=== PATIENT | male | born 1945 | race Caucasian/White ===

== ENCOUNTER → 2020-05-09 09:38 | Outpatient (BNVA) | payer MEDICARE, SELFPAY | PROVIDERS: Family Provider Family Medicine; PCP Family Medicine; Visit Provider Urology | DX: N40.1 Benign prostatic hyperplasia with lower urinary tract symptoms (principal); R97.20 Elevated prostate specific antigen [PSA] | CPT/HCPCS: 81001; 84153 ==

== ENCOUNTER 2021-09-08 15:19 | Emergency (ER) | payer MEDICARE, SELFPAY ==
[2021-09-08 15:35] VITALS: BP 122/65; PULSE 71; RESP 18; TEMP 36.8; O2SAT 97; BMI 23.9
--- NOTE | 2021-09-08 15:51 | ECG_ITS ---
[facility] Test Date: 2021-09-08 Pat Name: Josué Wright Department: Room: Gender: Male Business Line Manager: : 1945 Requested By: Melanie Gandara Order Number: [id number] Cortez MD: Flor Elizabeth M.D. Measurements Intervals [place] Rate: 67 P: 60 [place]: 152 QRS: 51 QRSD: 161 T: 62 QT: 483 QTc: 514 Interpretive Statements SINUS RHYTHM LEFT BUNDLE BRANCH BLOCK [120+ ms QRS DURATION, 80+ ms Q/S IN V1/V2, 85+ ms R IN I/aVL/V5/V6] Compared to ECG 05/27/2018 12:44:08 No significant changes Electronically Signed On 09-08-2021 16:59:35 DIGITAL ACCOUNT COORDINATOR by Flor Elizabeth M.D. [id number]
[2021-09-08 16:00] VITALS: BP 130/58; PULSE 69; RESP 16; O2SAT 96
--- NOTE | 2021-09-08 16:07 | ED_ITS ---
Documented by User: Melanie Gandara PA-C 09/08/21 16:47 HPI - Weakness General: Chief complaint: Weakness Stated complaint: low bp Time Seen by Provider: 09/08/21 16:01 Source: patient Mode of arrival: ambulatory Limitations: no limitations History of Present Illness: 76-year-old male presents to the ER today for low blood pressure. Patient reports he checks his blood pressure daily at home and has noticed over the last 2 to 3 days his blood pressure has been trending emiliano nward. Patient's blood pressure at home was 80/30 at his last reading. Patient reports he has not changed cuffs or done anything differently. Patient has a history of hypertension and cardiomyopathy. Patient is supposed to be having an echo but that has not been scheduled this time. Patient does see Dr. Rodriguez for his cardiac issues. Patient reports increased weakness however he attributes it to the weather and wearing boots in the snow to work. Patient denies any increase shortness of breath. Denies any chest pain. Patient reports a mild cough but nothing worse over the last 2 to 3 days. Patient denies any fever or chills. Patient denies any recent illness. Associated symptoms: Denies chest pain, dysuria, nausea or vomiting Review of Systems General: Reports: 10 or more systems reviewed and unremarkable except in HPI and below Card: Denies: chest pain, palpitations, lightheadedness, dyspnea on exertion or orthopnea Resp: Denies: dyspnea or productive cough GI: Denies: abdominal pain, nausea, vomiting, diarrhea or constipation : Denies: difficulty urinating or dysuria PFS ED PFSH: Medical History BPH loc w urin obs/LUTS Cardiomyopathy DVT of leg (deep venous thrombosis) Elevated PSA Gross hematuria Hematospermia HTN (hypertension) Hydrocele, bilateral Surgical History Hx of arthroscopy of left knee Hx of hand surgery Family History Mother , AT AGE 62 STOMACH CANCER Cancer Father Diabetes Sister Cancer Social History Smoking and tobacco status: former smoker Alcohol intake: unknown Adopted: No Caregiver/support person: No Household members: spouse Marital status: Current occupational status: retired Physical Exam Const: COMMON NORMALS: no acute distress, average body habitus, patient oriented x3, no limitations and alert HENMT: COMMON NORMALS: normocephalic HEAD & SCALP: normocephalic Neck/C-Spine: COMMON NORMALS: full ROM and no lymphadenopathy Resp: COMMON NORMALS: normal respiratory effort, No retractions, No use of accessory muscles and clear to auscultation bilaterally AUSCULTATION: clear to auscultation bilaterally Cardio: COMMON NORMALS: regular rate and regular rhythm RATE: regular rate RHYTHM: regular rhythm HEART SOUNDS: no murmurs GI: COMMON NORMALS: Normal to inspection, nondistended, normoactive bowel sounds present, Soft to palpation and non-tender PALPATION: Yes Soft to palpation : COMMON NORMALS: Yes no CVA tenderness BLADDER/KIDNEY EXAM: Yes no CVA tenderness Back/Pelvis: COMMON NORMALS: no CVA tenderness Extremity: COMMON NORMALS: normal to inspection and full ROM Neuro: COMMON NORMALS: patient oriented x3 SENSORIUM/ORIENTATION: Yes alert Psych: COMMON NORMALS: mental status grossly normal, Normal thought process present and cooperative THOUGHT PROCESS: Normal thought process present Skin: COMMON NORMALS: no rashes or lesions noted GENERAL SKIN EXAM: no rashes or lesions noted Course ED course: Patient's blood pressure is normal in the ER today however I did look at his readings at home and they have been trending downward over the last 2 days. We will do an EKG and lab work here to rule out any causes of that. Reevaluation(s): Reevaluation #1: Waiting on test results and EKG at time of shift change. Report given to Jose Tyson. Vital Signs: Vital signs: Vital Signs Temperature 98.3 F 09/08/21 15:35 Pulse Rate 63 09/08/21 18:07 Respiratory Rate 14 09/08/21 18:07 Blood Pressure 137/69 09/08/21 18:07 Pulse Oximetry 97 09/08/21 18:07 MDM - Weakness Lab Data : 09/08/21 16:45 09/08/21 16:45 Radiology Impressions Chest X-Ray 09/08/21 17:31 IMPRESSION: No acute findings. Laboratory Results WBC 2.8 10^3/uL (4.0-10.0) L 09/08/21 16:45 RBC 3.90 10^6/uL (4.1-5.3) L 09/08/21 16:45 Hgb 11.9 g/dL (11.7-16.6) 09/08/21 16:45 Hct 35.8 % (42.0-52.0) L 09/08/21 16:45 MCV 91.8 fl (80-94) 09/08/21 16:45 MCH 30.5 pg (28.0-34.0) 09/08/21 16:45 MCHC 33.2 g/dL (30.0-36.0) 09/08/21 16:45 RDW 12.7 % (12.1-15.1) 09/08/21 16:45 Plt Count 133 10^3/cmm (130-400) 09/08/21 16:45 MPV 10.6 fL (7.4-10.4) H 09/08/21 16:45 Neut % (Auto) 60.3 % 09/08/21 16:45 Lymph % (Auto) 26.9 % 09/08/21 16:45 [place] % (Auto) 11.6 % 09/08/21 16:45 Eos % (Auto) 0.4 % 09/08/21 16:45 Baso % (Auto) 0.4 % 09/08/21 16:45 Neut # (Auto) 1.66 10^3/uL (1.8-7.7) L 09/08/21 16:45 Lymph # (Auto) 0.7 10^3/uL (0.8-4.8) L 09/08/21 16:45 [place] # (Auto) 0.3 10^3/uL (0.2-0.9) 09/08/21 16:45 Eos # (Auto) 0.0 10^3/uL (0.0-0.8) 09/08/21 16:45 Baso # (Auto) 0.0 10^3/uL (0.0-0.1) 09/08/21 16:45 Nucleated RBC % (auto) 0 % 09/08/21 16:45 Nucleated RBCs # 0.0 /100WBC 09/08/21 16:45 Sodium 138 mmol/L (136-145) 09/08/21 16:45 Potassium 4.5 mmol/L (3.5-5.1) 09/08/21 16:45 Chloride 102 mmol/L (98-107) 09/08/21 16:45 Carbon Dioxide 27 mmol/L (22-29) 09/08/21 16:45 Anion Gap 13.5 (5-19) 09/08/21 16:45 BUN 20 mg/dL (8-23) 09/08/21 16:45 Creatinine 0.9 mg/dL (0.7-1.2) 09/08/21 16:45 GFR Calculation Not Reportable 09/08/21 16:45 Glucose 101 mg/dL (65-115) 09/08/21 16:45 Calculated Osmolality 289 mOsm/kg (285-295) 09/08/21 16:45 Calcium 7.6 mg/dL (8.5-10.5) L 09/08/21 16:45 Total Bilirubin 0.4 mg/dL (0.15-1.2) 09/08/21 16:45 AST 37 U/L (0-40) 09/08/21 16:45 ALT 18 U/L (0-41) 09/08/21 16:45 Alkaline Phosphatase 63 IU/L (40-130) 09/08/21 16:45 Total Protein 5.6 g/dL (6.6-8.7) L 09/08/21 16:45 Albumin 3.7 g/dL (3.5-5.2) 09/08/21 16:45 Globulin 1.9 g/dL (1.3-4.6) 09/08/21 16:45 Urine Color Yellow (Yellow) 09/08/21 14:45 Urine Appearance Clear (CLEAR) 09/08/21 14:45 Urine pH 6 (5-7) 09/08/21 14:45 Ur Specific Marcell[place] 1.010 (1.005-1.030) 09/08/21 14:45 Urine Protein Neg (Negative) 09/08/21 14:45 Urine Glucose (UA) Norm (Normal) 09/08/21 14:45 Urine Ketones Negative (Negative) 09/08/21 14:45 Urine Blood 2+ (Negative) H 09/08/21 14:45 Urine Nitrate Negative (Negative) 09/08/21 14:45 Urine Bilirubin Neg (Negative) 09/08/21 14:45 Urine Urobilinogen Norm mg/dL (Negative) 09/08/21 14:45 Ur Leukocyte Esterase Negative (Negative) 09/08/21 14:45 Urine RBC 0-4 /hpf (0-2) H 09/08/21 14:45 Urine WBC None /hpf (0-5) 09/08/21 14:45 Ur Squamous Epith Cells None /hpf (0-5) 09/08/21 14:45 Amorphous Sediment Not Reportable 09/08/21 14:45 Urine Bacteria Trace /hpf (NONE) 09/08/21 14:45 SARS-CoV-2 Ag (Rapid) Positive (Negative) H 09/08/21 17:45 Discharge Plan Discharge Patient Disposition: Home Clinical Impression: COVID-19 Condition: Stable Prescriptions: No Action finasteride 5 mg tablet 5 mg PO DAILY 0RF tamsulosin 0.4 mg capsule 0.4 mg PO DAILY 0RF aspirin [Adult Low Dose Aspirin] 81 mg tablet,delayed release (DR/EC) 81 mg PO DAILY 0RF levothyroxine [Synthroid] 25 mcg tablet 25 mcg PO DAILY 0RF vitamin B complex [B Complex-Vitamin B12] Tablet 1 tab PO DAILY 0RF amlodipine 2.5 mg tablet 2.5 mg PO DAILY 0RF multivitamin Tablet 1 tab PO DAILY 0RF carvedilol 25 mg tablet 25 mg PO BID Qty: 14 0RF Rx Instructions: must administer with a meal/food Discharge Orders: Discharge ED (Routine); Ordered 09/08/21 Ordered By: Jose Tyson Referrals: Alex Casiano MD [Primary Care Provider] - Discharge Diet: Usual diet Discharge Activity: Increase activity as tolerated Patient Instructions: Viral Syndrome (ED), Opioid Safety Activity Restrictions/Additional Instructions: Home and rest. Drink plenty of water and fluids. Use acetaminophen or ibuprofen for pain and fever. Follow-up with primary care as needed for further instructions. Return to ER for new concerns or worsening symptoms like severe chest pain, increasing shortness of breath, or new concerns. Sign Out Sign Out Data: Patient Sign Out occurred on 09/08/21 at 16:53. Patient's care was discussed, and care was transferred from to Jose Tyson. Coding Level of Care Code ED Supermarket Manager for Chg Fwd Exam Comprehensive Documented by User: MACHELLE Levine 09/08/21 18:39 HPI - Weakness General: Chief complaint: Weakness Stated complaint: low bp Time Seen by Provider: 09/08/21 16:01 PFSH ED PFSH: Medical History BPH loc w urin obs/LUTS Cardiomyopathy DVT of leg (deep venous thrombosis) Elevated PSA Gross hematuria Hematospermia HTN (hypertension) Hydrocele, bilateral Surgical History Hx of arthroscopy of left knee Hx of hand surgery Family History Mother , AT AGE 62 STOMACH CANCER Cancer Father Diabetes Sister Cancer Social History Smoking and tobacco status: former smoker Alcohol intake: unknown Adopted: No Caregiver/support person: No Household members: spouse Marital status: Current occupational status: retired Course Vital Signs: Vital signs: Vital Signs Temperature 98.3 F 09/08/21 15:35 Pulse Rate 63 09/08/21 18:07 Respiratory Rate 14 09/08/21 18:07 Blood Pressure 137/69 09/08/21 18:07 Pulse Oximetry 97 09/08/21 18:07 MDM - Weakness Medical Decision Making 76-year-old male patient comes in today for complaints of increased weakness over the last 3 days. Patient also notes that his blood pressure was running a little bit lower. 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 Patient appears mildly unwell but not toxic. Lungs are decreased air movement in the bases. No edema is noted in the extremities. Patient moves all extremities well. Differential diagnosis includes but not limited to viral syndrome, anemia, pneumonia. Chest x-ray was normal. CBC noted a white count of 2.8, CMP was unremarkable, EKG showed a sinus rhythm with a left bundle branch block. Suspicion for COVID-19 was raised due to the leukopenia and a COVID-19 antigen test was performed testing positive for the patient. Recommended patient drink plenty of fluids and continue with routine medications as directed. Recommend patient talk with his primary care about other options for treatment at this time. Patient reported understanding of care plan and need for follow-up or return to the ER for increasing shortness of breath or severe chest pain. Patient reported understanding. Lab Data : 09/08/21 16:45 09/08/21 16:45 Radiology Impressions Chest X-Ray 09/08/21 17:31 IMPRESSION: No acute findings. Laboratory Results WBC 2.8 10^3/uL (4.0-10.0) L 09/08/21 16:45 RBC 3.90 10^6/uL (4.1-5.3) L 09/08/21 16:45 Hgb 11.9 g/dL (11.7-16.6) 09/08/21 16:45 Hct 35.8 % (42.0-52.0) L 09/08/21 16:45 MCV 91.8 fl (80-94) 09/08/21 16:45 MCH 30.5 pg (28.0-34.0) 09/08/21 16:45 MCHC 33.2 g/dL (30.0-36.0) 09/08/21 16:45 RDW 12.7 % (12.1-15.1) 09/08/21 16:45 Plt Count 133 10^3/cmm (130-400) 09/08/21 16:45 MPV 10.6 fL (7.4-10.4) H 09/08/21 16:45 Neut % (Auto) 60.3 % 09/08/21 16:45 Lymph % (Auto) 26.9 % 09/08/21 16:45 [place] % (Auto) 11.6 % 09/08/21 16:45 Eos % (Auto) 0.4 % 09/08/21 16:45 Baso % (Auto) 0.4 % 09/08/21 16:45 Neut # (Auto) 1.66 10^3/uL (1.8-7.7) L 09/08/21 16:45 Lymph # (Auto) 0.7 10^3/uL (0.8-4.8) L 09/08/21 16:45 [place] # (Auto) 0.3 10^3/uL (0.2-0.9) 09/08/21 16:45 Eos # (Auto) 0.0 10^3/uL (0.0-0.8) 09/08/21 16:45 Baso # (Auto) 0.0 10^3/uL (0.0-0.1) 09/08/21 16:45 Nucleated RBC % (auto) 0 % 09/08/21 16:45 Nucleated RBCs # 0.0 /100WBC 09/08/21 16:45 Sodium 138 mmol/L (136-145) 09/08/21 16:45 Potassium 4.5 mmol/L (3.5-5.1) 09/08/21 16:45 Chloride 102 mmol/L (98-107) 09/08/21 16:45 Carbon Dioxide 27 mmol/L (22-29) 09/08/21 16:45 Anion Gap 13.5 (5-19) 09/08/21 16:45 BUN 20 mg/dL (8-23) 09/08/21 16:45 Creatinine 0.9 mg/dL (0.7-1.2) 09/08/21 16:45 GFR Calculation Not Reportable 09/08/21 16:45 Glucose 101 mg/dL (65-115) 09/08/21 16:45 Calculated Osmolality 289 mOsm/kg (285-295) 09/08/21 16:45 Calcium 7.6 mg/dL (8.5-10.5) L 09/08/21 16:45 Total Bilirubin 0.4 mg/dL (0.15-1.2) 09/08/21 16:45 AST 37 U/L (0-40) 09/08/21 16:45 ALT 18 U/L (0-41) 09/08/21 16:45 Alkaline Phosphatase 63 IU/L (40-130) 09/08/21 16:45 Total Protein 5.6 g/dL (6.6-8.7) L 09/08/21 16:45 Albumin 3.7 g/dL (3.5-5.2) 09/08/21 16:45 Globulin 1.9 g/dL (1.3-4.6) 09/08/21 16:45 Urine Color Yellow (Yellow) 09/08/21 14:45 Urine Appearance Clear (CLEAR) 09/08/21 14:45 Urine pH 6 (5-7) 09/08/21 14:45 Ur Specific [place] 1.010 (1.005-1.030) 09/08/21 14:45 Urine Protein Neg (Negative) 09/08/21 14:45 Urine Glucose (UA) Norm (Normal) 09/08/21 14:45 Urine Ketones Negative (Negative) 09/08/21 14:45 Urine Blood 2+ (Negative) H 09/08/21 14:45 Urine Nitrate Negative (Negative) 09/08/21 14:45 Urine Bilirubin Neg (Negative) 09/08/21 14:45 Urine Urobilinogen Norm mg/dL (Negative) 09/08/21 14:45 Ur Leukocyte Esterase Negative (Negative) 09/08/21 14:45 Urine RBC 0-4 /hpf (0-2) H 09/08/21 14:45 Urine WBC None /hpf (0-5) 09/08/21 14:45 Ur Squamous Epith Cells None /hpf (0-5) 09/08/21 14:45 Amorphous Sediment Not Reportable 09/08/21 14:45 Urine Bacteria Trace /hpf (NONE) 09/08/21 14:45 SARS-CoV-2 Ag (Rapid) Positive (Negative) H 09/08/21 17:45 EKG Data EKG 1: Interpretation: 1700, EKG shows a sinus rhythm with a left bundle branch block. Irregular rate at 67 bpm with no ectopy. Normal NH intervals are noted, patient has a widened QRS pattern. Discharge Plan Discharge Patient Disposition: Home Clinical Impression: COVID-19 Condition: Stable Prescriptions: No Action finasteride 5 mg tablet 5 mg PO DAILY 0RF tamsulosin 0.4 mg capsule 0.4 mg PO DAILY 0RF aspirin [Adult Low Dose Aspirin] 81 mg tablet,delayed release (DR/EC) 81 mg PO DAILY 0RF levothyroxine [Synthroid] 25 mcg tablet 25 mcg PO DAILY 0RF vitamin B complex [B Complex-Vitamin B12] Tablet 1 tab PO DAILY 0RF amlodipine 2.5 mg tablet 2.5 mg PO DAILY 0RF multivitamin Tablet 1 tab PO DAILY 0RF carvedilol 25 mg tablet 25 mg PO BID Qty: 14 0RF Rx Instructions: must administer with a meal/food Discharge Orders: Discharge ED (Routine); Ordered 09/08/21 Ordered By: Jose Tyson Referrals: Alex Casiano MD [Primary Care Provider] - Discharge Diet: Usual diet Discharge Activity: Increase activity as tolerated Patient Instructions: Viral Syndrome (ED), Opioid Safety Activity Restrictions/Additional Instructions: Home and rest. Drink plenty of water and fluids. Use acetaminophen or ibuprofen for pain and fever. Follow-up with primary care as needed for further instructions. Return to ER for new concerns or worsening symptoms like severe chest pain, increasing shortness of breath, or new concerns. Sign Out Sign Out Data: Patient Sign Out occurred on 09/08/21 at 16:53. Patient's care was discussed, and care was transferred from to Jose Tyson. Coding Level of Care Code ED Supermarket Manager for Colby Fwd Exam Comprehensive
[2021-09-08 17:22] LABS: Basophils % 0.4 %; Eosinophils % 0.4 %; Hematocrit 35.8 % (42.0-52.0); Hemoglobin 11.9 g/dL (11.7-16.6); Lymphocytes # 0.7 10^3/uL (0.8-4.8); Lymphocytes % 26.9 %; Mean Corpuscular HGB Conc 33.2 g/dL (30.0-36.0); Mean Corpuscular Hemoglobin 30.5 pg (28.0-34.0); Mean Corpuscular Volume 91.8 fl (80-94); Mean Platelet Volume 10.6 fL (7.4-10.4); Monocytes # 0.3 10^3/uL (0.2-0.9); Monocytes % 11.6 %; Neutrophils # 1.66 10^3/uL (1.8-7.7); Neutrophils % 60.3 %; Nucleated Red Blood Cells % 0 %; Platelet Count 133 10^3/cmm (130-400); Red Cell Distribution Width 12.7 % (12.1-15.1); White Blood Count 2.8 10^3/uL (4.0-10.0)
[2021-09-08 17:25] LABS: Add Urine Microscopic? YES; Bilirubin Urine Neg (Negative); Blood Urine 2+ (Negative); Glucose Urine UA Norm (Normal); Ketones Urine Negative (Negative); Leukocyte Esterase Urine Negative (Negative); Nitrate Urine Negative (Negative); Protein Urine Neg (Negative); RBC Urine 0-4 /hpf (0-2); Urine Appearance Clear (CLEAR); Urine Color Yellow (Yellow); Urobilinogen Urine Norm (Negative); pH Urine 6 (5-7)
[2021-09-08 17:26] LABS: Add Urine Culture? No; Bacteria Urine TRACE /hpf
--- NOTE | 2021-09-08 17:31 | XRR_ITS ---
PROCEDURE INFORMATION: Exam: XR Chest Exam date and time: 09/08/2021 5:31 PM Age: 76 years old Clinical indication: Dyspnea; Additional info: Weakness, dyspnea TECHNIQUE: Imaging protocol: XR of the chest. Views: 1 view. COMPARISON: CR Chest 1 [place] [id number] 05/27/2018 12:53 PM FINDINGS: Lungs: Unremarkable. No consolidation. Pleural spaces: Unremarkable. No pleural effusion. No pneumothorax. Heart/Mediastinum: Unremarkable. No cardiomegaly. Bones/joints: Unremarkable. XR/XR chest 1V portable [id number] IMPRESSION: No acute findings.
[2021-09-08 17:38] LABS: Alanine Aminotransferase 18 U/L (0-41); Albumin Level 3.7 g/dL (3.5-5.2); Alkaline Phosphatase 63 IU/L (40-130); Aspartate Amino Transferase 37 U/L (0-40); Blood Urea Nitrogen 20 mg/dL (8-23); Calcium 7.6 mg/dL (8.5-10.5); Carbon Dioxide 27 mmol/L (22-29); Chloride 102 mmol/L (98-107); Globulin 1.9 g/dL (1.3-4.6); Glucose 101 mg/dL (65-115); Osmolality Calculated 289 mOsm/kg (285-295); Sodium 138 mmol/L (136-145); Total Bilirubin 0.4 mg/dL (0.15-1.2); Total Protein 5.6 g/dL (6.6-8.7)
[2021-09-08 17:40] LABS: Anion Gap 13.5 (5-19); Potassium 4.5 mmol/L (3.5-5.1)
[2021-09-08 18:07] VITALS: BP 137/69; PULSE 63; RESP 14; O2SAT 97
[2021-09-08 18:29] LABS: SARS Covid-2 Antigen Positive (Negative)
== END 2021-09-08 18:53 | disposition home or self-care (01) ==
PROVIDERS: Physician Assistant; Emergency Provider Nurse Practitioner Family; PCP Family Medicine
DX: U07.1 COVID-19 (principal); Z79.82 Long term (current) use of aspirin; I10 Essential (primary) hypertension; Z87.891 Personal history of nicotine dependence
CPT/HCPCS: 71045; 80053; 81001; 85025; 87426; 93005; 99283

== ENCOUNTER 2021-10-21 13:38 | Outpatient (CLI) | payer MEDICARE, SELFPAY ==
--- NOTE | 2021-10-21 13:44 | USCV_ITS ---
Josué Wright Age: 76 Gender: M : 1945 Exam Date: 10/21/2021 13:54 Ordering Phys: Jostin Oliver MD ([email or web address]) Technologist: PIETRO Exam Location: [facility] Indication: DILATED CARDIOMYOPATHY BP: 132 / 60 HR: 68 Rhythm: Sinus Technical Quality: Adequate MEASUREMENTS (Male / Female) Normal Values 2D ECHO LV Diastolic Diameter PLAX 4.3 cm 4.2 - 5.9 / 3.9 - 5.3 cm LV Systolic Diameter PLAX 2.9 cm IVS Diastolic Thickness 1.1 cm 0.6 - 1.0 / 0.6 - 0.9 cm IVS Systolic Thickness 1.8 cm LVPW Diastolic Thickness 1.1 cm 0.6 - 1.0 / 0.6 - 0.9 cm LVPW Systolic Thickness 1.1 cm LVOT Diameter 2.0 cm LV Ejection Fraction 2D Teich 56.9 % LV Ejection Fraction MOD 2C 46.3 % LV Ejection Fraction 2C AL 45.1 % LA Diameter 3.0 cm LA Width 3.4 cm LA Height 3.8 cm RA Width 3.5 cm RA Height 4.1 cm Aorta at Sinotubular Diameter 2.3 cm M-MODE Aortic Annulus Diameter 3.1 cm LA Ao Ratio MM 1.1 MV E Point Septal Separation 1.0 cm DOPPLER AV Peak Velocity 128.0 cm/s LVOT Peak Velocity 99.0 cm/s AV Area Cont Eq vti 2.4 cm squared AV Area Cont Eq pk 2.4 cm squared MV Area PHT 3.7 cm squared Mitral E to A Ratio 0.6 MV E' Velocity 33.5 cm/s Mitral E to MV E' Ratio 10.1 Mitral E to LV E' Lateral Ratio 8.8 Mitral E to LV E' Septal Ratio 12.1 TR Peak Velocity 248.1 cm/s TR Peak Gradient 24.6 mmHg TR Mean Velocity 183.3 cm/s TR Mean Gradient 14.3 mmHg TR Velocity Time Integral 73.8 cm TV Peak E Velocity 39.0 cm/s Right Atrial Pressure 3.0 mmHg Pulmonary Artery Systolic Pressu 27.6 mmHg PV Peak Velocity 92.0 cm/s RV Acceleration Time 0.1 s RV Ejection Time 0.3 s RV AcT/ET 0.4 FINDINGS Left Ventricle Normal left ventricular cavity size. Normal left ventricular wall thickness. Normal left ventricular systolic function. Left ventricular ejection fraction is estimated at 50-55 % visually and 52% by modified biplane method. There is possible septal wall hypokinesis. Abnormal septal motion consistent with conduction abnormality. Grade I diastolic dysfunction (abnormal relaxation filling pattern), normal to mildly elevated filling pressures. Right Ventricle Normal right ventricular size and systolic function. Right ventricular systolic pressure 26 mmHg. Right Atrium Normal right atrial size. Right atrial pressure estimated at 3 mm Hg. Left Atrium Mildly increased left atrial size. Mitral Valve Structurally normal mitral valve. No mitral valve stenosis. Mild mitral valve regurgitation. Aortic Valve Structurally normal trileaflet aortic valve. No aortic valve stenosis. No aortic valve regurgitation. Tricuspid Valve Structurally normal tricuspid valve. No tricuspid valve stenosis. Mild tricuspid valve regurgitation. Pulmonic Valve Pulmonic valve not well visualized. Mild pulmonary valve regurgitation. Pericardium No pericardial effusion. Aorta Normal-sized aortic root. Normal-sized inferior vena cava. CONCLUSIONS 1. Normal left ventricular cavity size, wall thickness and systolic function. Left ventricular ejection fraction is estimated at 50-55 % visually and 52% by modified biplane method. There is possible septal wall hypokinesis. Abnormal septal motion consistent with conduction abnormality. Grade I diastolic dysfunction (abnormal relaxation filling pattern), normal to mildly elevated filling pressures. 2. Normal right ventricular size and systolic function. 3. Pulmonary pressure estimated at 26 mmHg. 4. Mild mitral and tricuspid valve regurgitation. 5. When compared to previous echocardiogram 10/23/2017, left ventricular systolic function seems to have decreased. Flor Elizabeth MD (Electronically Signed) Final Date: 24 October 2021 18:30 S
== END 2021-10-21 13:39 | disposition home or self-care (01) ==
LOC: RAD 13:40
PROVIDERS: PCP Family Medicine; Visit Provider Internal Medicine Cardiovascular Disease
DX: I42.0 Dilated cardiomyopathy (principal); R06.02 Shortness of breath; I08.1 Rheumatic disorders of both mitral and tricuspid valves
CPT/HCPCS: 93306

== ENCOUNTER → 2022-02-11 09:34 | Outpatient (BNVA) | payer MEDICARE, SELFPAY | PROVIDERS: PCP Family Medicine; Visit Provider Family Medicine | DX: E03.9 Hypothyroidism, unspecified (principal); I27.20 Pulmonary hypertension, unspecified | CPT/HCPCS: 80053; 84443; 85025 ==

== ENCOUNTER → 2022-06-09 13:45 | Outpatient (BNVA) | payer MEDICARE, SELFPAY | PROVIDERS: PCP Family Medicine; Visit Provider Internal Medicine Cardiovascular Disease | DX: I42.0 Dilated cardiomyopathy (principal); I10 Essential (primary) hypertension; Z87.891 Personal history of nicotine dependence | CPT/HCPCS: 99214 ==

== ENCOUNTER → 2022-10-20 14:54 | Outpatient (BNVA) | payer MEDICARE, SELFPAY | PROVIDERS: PCP Family Medicine; Visit Provider Family Medicine | DX: R53.83 Other fatigue (principal); M19.90 Unspecified osteoarthritis, unspecified site; R35.0 Frequency of micturition; U07.1 COVID-19; N40.1 Benign prostatic hyperplasia with lower urinary tract symptoms; R97.20 Elevated prostate specific antigen [PSA] | CPT/HCPCS: 80053; 81000; 81003; 83880; 84153; 84443; 85025; 86140; 87086 ==

== ENCOUNTER 2022-11-04 10:51 | Outpatient (CLI) | payer MEDICARE, SELFPAY ==
--- NOTE | 2022-11-04 11:17 | XRR_ITS ---
PROCEDURE INFORMATION: Exam: XR Right Shoulder Exam date and time: 11/04/2022 11:36 AM Age: 77 years old Clinical indication: Pain; Shoulder; Bilateral; Additional info: Shoulder pain TECHNIQUE: Imaging protocol: Radiologic exam of the right shoulder. Views: 2 or more views. Total images: 1 COMPARISON: CR XR chest 1V portable [id number] 09/08/2021 5:55 PM FINDINGS: Bones/joints: Normal. Soft tissues: Normal. XR/XR shoulder RT min 2V* [id number] IMPRESSION: No acute findings.
--- NOTE | 2022-11-04 11:17 | XRR_ITS ---
PROCEDURE INFORMATION: Exam: XR Left Shoulder Exam date and time: 11/04/2022 11:36 AM Age: 77 years old Clinical indication: Pain; Shoulder; Bilateral; Additional info: Shoulder pain TECHNIQUE: Imaging protocol: Radiologic exam of the left shoulder. Views: 2 or more views. Total images: 2 COMPARISON: CR XR chest 1V portable [id number] 09/08/2021 5:55 PM FINDINGS: Bones/joints: Normal. Soft tissues: Normal. XR/XR shoulder LT min 2V* [id number] IMPRESSION: No acute findings.
== END 2022-11-04 10:52 | disposition home or self-care (01) ==
PROVIDERS: PCP Family Medicine; Visit Provider Family Medicine
DX: M25.512 Pain in left shoulder (principal); M25.511 Pain in right shoulder
CPT/HCPCS: 73030

== ENCOUNTER → 2022-11-11 14:20 | Outpatient (BNVA) | payer MEDICARE, SELFPAY | PROVIDERS: PCP Family Medicine; Visit Provider Family Medicine | DX: R79.82 Elevated C-reactive protein (CRP) (principal) | CPT/HCPCS: 85025; 85651; 86140 ==

== ENCOUNTER 2022-11-18 06:42 | Outpatient (CLI) | payer MEDICARE, SELFPAY ==
--- NOTE | 2022-11-18 07:00 | CT_ITS ---
WS: [id number] CT chest wo con [id number] HISTORY: dyspnea/ cough/ elevated CRP TECHNIQUE: Axial imaging performed through the thorax. Coronal and sagittal reformats are submitted. All CT scans at [facility] use at least one of these dose optimization techniques: automated exposure control; mA and/or kV adjustment per patient size (includes targeted exams where dose is mat ched to clinical indication); or iterative reconstruction. CONTRAST: None DLP: 253.19 mGy.cm COMPARISON: Chest radiograph 09/08/2021. Lungs and central airway: Marked pulmonary hyperinflation with advanced emphysema. Numerous, multi lo bar opacifications are identified. There is a solid mass which is spiculated at the LEFT lung base in the anterior LEFT lower lobe. This mass measures 3.1 x 2.4 cm and contains a lucent center. There is additional scattered tree-in-bud airspace disease and nodules. 1.2 cm nodule along the LEFT inferior major fissure. Additional nodules and tree-in-bud airspace disease with reticular thickening is note d bilaterally. Pleura: Normal. No pleural effusion. Heart and pericardium: Mild cardiomegaly with no pericardial effusion. Mediastinum and ju: Hilar regions are difficult to evaluate well without IV contrast. There does ap pear to be some fullness at the hilar regions but this may be vascular. No RIGHT paratracheal enlarge d lymph nodes. Vessels: Mild atherosclerosis aorta. No aneurysm. Normal size pulmonary artery. Chest wall and lower neck: No soft tissue masses. Upper abdomen: Small hiatal hernia. There are several low-attenuation masses within the liver. The la rgest is slightly lobulated in the LEFT lobe measuring 2.9 x 2.4 cm. Cysts were identified within the liver on a prior ultrasound of 10/12/2014. Some of these low-attenuation lesions are too small to ej racterize. No adrenal mass. Osseous structures: Osteopenia. Moderate increase in thoracic kyphosis. CT/CT chest wo con [id number] IMPRESSION: 1. Multilobar abnormalities are noted throughout the lungs. 2. Most concerning abnormality is a spiculated mass with a lucent centered in the anterior LEFT lower lobe measuring 3.1 x 2.4 cm. Differential includes neop lasm but also infectious or inflammatory etiology. 3. Numerous additional tree-in-bud airspace disease which is typically noted w ith endobronchial pneumonia or aspiration pneumonia. 4. There are additional scattered pulmonary nodules which are less than a cent imeter. These all may be postinflammatory or chronic. 5. Recommend treatment for possible pneumonia with short-term follow-up in 4-[address] would be the most helpful to reevaluate. 6. No definite adenopathy is identified. 7. Hepatic cysts. 8. Mild cardiomegaly.
== END 2022-11-18 06:43 | disposition home or self-care (01) ==
LOC: RAD 06:46
PROVIDERS: PCP Family Medicine; Visit Provider Family Medicine
DX: R05.9 Cough, unspecified (principal); R79.82 Elevated C-reactive protein (CRP); R91.8 Other nonspecific abnormal finding of lung field; K76.89 Other specified diseases of liver; I51.7 Cardiomegaly
CPT/HCPCS: 71250

== ENCOUNTER 2022-11-25 12:28 | Outpatient (CLI) | payer MEDICARE, SELFPAY ==
--- NOTE | 2022-11-25 12:30 | CT_ITS ---
WS: [id number] CT PELVIS WITHOUT CONTRAST. 3-D. HISTORY: hip pain TECHNIQUE: Contiguous imaging is performed of the pelvis without contrast. Coronal and sagittal refor mats are reviewed. [facility] CT [facility] [place] use at least one of these dose optimization marvin hniques: automated exposure control; mA and/or kV adjustment per patient size (includes targeted exam s where dose is matched to clinical indication); or iterative reconstruction. DLP: 219.09 mGy.cm COMPARISON: Renal ultrasound 10/04/2015 Mild osteopenia. Osseous fusion across the SI joints bilaterally. Very mild narrowing of the hip join ts. No evidence for osteonecrosis. There are a few small subchondral cysts remaining the acetabulum. Mild CAM deformity on the RIGHT. No joint effusion. Large, incompletely visualized RIGHT renal cyst. Cyst associated with the RIGHT kidney have been pr eviously described. Cyst measures at least 8.2 x 8.0 cm. No soft tissue mass. Prostate gland encroach es into the urinary bladder. No free fluid or adenopathy. Distal colonic diverticulosis. Mild bilater al foraminal stenosis at L4-5 and L5-S1. CT/CT pelvis wo con [id number] IMPRESSION: 1. Bilateral SI joint fusion. 2. Mild bilateral hip joint arthritis. A few small subchondral cyst along the acetabulum. No osteonecrosis. 3. Marked prostate enlargement encroaching into the bladder. 4. RIGHT renal cyst. 5. Bilateral mild neural foraminal narrowing at L4-5 and L5-S1.
== END 2022-11-25 12:29 | disposition home or self-care (01) ==
LOC: RAD 12:31
PROVIDERS: PCP Family Medicine; Visit Provider Family Medicine
DX: M25.559 Pain in unspecified hip (principal); M16.0 Bilateral primary osteoarthritis of hip; N28.1 Cyst of kidney, acquired
CPT/HCPCS: 72192

== ENCOUNTER 2022-12-18 14:59 | Outpatient (CLI) | payer MEDICARE, SELFPAY ==
--- NOTE | 2022-12-18 15:00 | CT_ITS ---
WS: [id number] CT chest wo con [id number] HISTORY: lung nodule/ pneumonia follow up TECHNIQUE: Axial imaging performed through the thorax. Coronal and sagittal reformats are submitted. All CT scans at [facility] use at least one of these dose optimization techniques: automated exposure control; mA and/or kV adjustment per patient size (includes targeted exams where dose is mat ched to clinical indication); or iterative reconstruction. CONTRAST: None DLP: 285.71 mGy.cm COMPARISON: 11/18/2022 Lungs and central airway: Moderate improvement in aeration of both lungs since the prior study. There are continued areas of patchy opacifications and tree-in-bud airspace disease. The most concerning s piculated mass at the LEFT lung base has significantly improved. There is now only minimal groundglas s attenuation remaining. Previously described nodule along the LEFT major fissure has decreased in si ze from 13 to 9 mm. Marked pulmonary hyperinflation. Pleura: Normal. No pleural effusion. Heart and pericardium: Moderate cardiomegaly. Mediastinum and ju: No mediastinum or hilar adenopathy. Vessels: Moderate atherosclerosis aorta. Scattered coronary artery calcifications. Chest wall and lower neck: No soft tissue masses. Upper abdomen: Scattered hepatic cysts are unchanged. No adrenal mass. Osseous structures: Marked increase in thoracic kyphosis. Disc spaces are narrowed throughout. CT/CT chest wo con [id number] IMPRESSION: 1. Moderate overall improvement in aeration throughout both lungs as compared to 11/18/2022. 2. The most concerning spiculated mass described on 11/18/2022 has significantl y improved with only mild residual groundglass attenuation. 3. There are additional scattered opacifications/nodule and tree-in-bud airspa ce disease which has slightly improved but no progression. 4. Chronic emphysema. 5. Recommend continued close imaging follow-up. Recommend chest CT follow-up i n 3 months. 6. Cardiomegaly. 7. No adenopathy. 8. Hepatic cysts.
== END 2022-12-18 15:00 | disposition home or self-care (01) ==
LOC: RAD 15:00
PROVIDERS: PCP Family Medicine; Visit Provider Family Medicine
DX: J18.9 Pneumonia, unspecified organism (principal); J43.9 Emphysema, unspecified; I51.7 Cardiomegaly
CPT/HCPCS: 71250

== ENCOUNTER 2023-03-25 11:35 | Outpatient (CLI) | payer MEDICARE, SELFPAY ==
--- NOTE | 2023-03-25 12:00 | CT_ITS ---
WS: [id number] CT chest wo con [id number] HISTORY: f/u on lung nodule TECHNIQUE: Axial imaging performed through the thorax. Coronal and sagittal reformats are submitted. All CT scans at [facility] use at least one of these dose optimization techniques: automated exposure control; mA and/or kV adjustment per patient size (includes targeted exams where dose is mat ched to clinical indication); or iterative reconstruction. CONTRAST: None DLP: 232.57 mGy.cm COMPARISON: 12/18/2022 and 11/18/2022 Lungs and central airway: Hyperinflated lungs. Patient has bilateral multi lobar areas of nodular opa cification and tree-in-bud airspace disease. Some of the tree-in-bud airspace changes have slightly i mproved while others are mildly more prominent. This is probably due to volume averaging and slice se lection. Pleura: Normal. No pleural effusion. Heart and pericardium: Moderate cardiomegaly. Scattered coronary artery calcifications. Mediastinum and ju: No mediastinum or hilar adenopathy. Vessels: Moderate atherosclerosis aorta with mild ectasia. Mild pulmonary hypertension. Chest wall and lower neck: No soft tissue masses. Upper abdomen: Low-attenuation masses within the liver most likely hepatic cysts. Hepatic cysts were described on a prior ultrasound from 10/12/2014. No adrenal mass. Splenic granulomata. Osseous structures: Increase in thoracic kyphosis. With very mild anterior wedging of several midthor acic vertebral bodies, no change. Impression: 1. Multi lobar pulmonary nodules and tree-in-bud airspace disease without obvious change since 023. Recommend 6-month noncontrast chest CT follow-up. 2. No mediastinal or hilar adenopathy. 3. Mild cardiomegaly. 4. Mild increase in thoracic kyphosis. 5. Hepatic cysts.
== END 2023-03-25 11:36 | disposition home or self-care (01) ==
PROVIDERS: PCP Family Medicine; Visit Provider Family Medicine
DX: R91.8 Other nonspecific abnormal finding of lung field (principal); I51.7 Cardiomegaly; M40.204 Unspecified kyphosis, thoracic region; K76.89 Other specified diseases of liver
CPT/HCPCS: 71250

== ENCOUNTER → 2023-04-14 08:46 | Outpatient (BNVA) | payer MEDICARE, SELFPAY | PROVIDERS: PCP Family Medicine; Visit Provider Family Medicine | DX: E78.1 Pure hyperglyceridemia (principal); R53.83 Other fatigue; I10 Essential (primary) hypertension; U07.1 COVID-19; E78.5 Hyperlipidemia, unspecified; R91.1 Solitary pulmonary nodule | CPT/HCPCS: 80053; 80061; 84443; 85025; 86140 ==

== ENCOUNTER → 2023-06-18 14:47 | Outpatient (BNVA) | payer MEDICARE, SELFPAY | PROVIDERS: PCP Family Medicine; Visit Provider Internal Medicine Cardiovascular Disease | DX: R06.02 Shortness of breath (principal); I42.0 Dilated cardiomyopathy; I10 Essential (primary) hypertension; E78.1 Pure hyperglyceridemia; Z87.891 Personal history of nicotine dependence; R07.89 Other chest pain | CPT/HCPCS: 99214 ==

== ENCOUNTER 2023-07-10 07:27 | Outpatient (CLI) | payer MEDICARE, SELFPAY ==
--- NOTE | 2023-07-10 | ECG_ITS ---
[facility] Test Date: 2023-07-10 Pat Name: Josué Wright Department: Room: Gender: Male Hotel Front Desk Clerk: Joi Jang : 1945 Requested By: Flor Elizabeth Order Number: [id number] Dana MD: Flor Elizabeth M.D. Interpretive Statements NAME OF STUDY: LEXISCAN SESTAMIBI STRESS TEST INDICATION: Chest Pain PROCEDURE: At the baseline, the blood pressure was 149 over 67 mm Hg with a heart rate of 54 beats per min. The electrocardiogram showed sinus bradycardia, normal axis. Left bundle branch block. ??? The Lexiscan was infused over a period of 20 seconds. A total of 0.4 milligrams of Lexiscan was infused. The stress phase was continued for a total of 5 minutes. Heart rate at the end of the stress phase was 73 bpm with a blood pressure of 126/61 mmHg. The EKG at the peak infusion revealed no significant ST-T wave changes. ??? Sestamibi was injected 20 seconds after the Lexiscan infusion. ??? Blood pressure at the end of the recovery phase was 121/59 mmHg with a heart rate of 69 beats per minute. ??? CONCLUSION: 1. Nondiagnostic EKG with the LexiScan infusion due to baseline left bundle branch block. 2. No LexiScan induced chest pain or cardiac arrhythmia. 3. Normal blood pressure and heart rate response. 4. Sestamibi/sestamibi perfusion scan pending; see separate report. Electronically Signed On 07-17-2023 12:15:56 SAFETY INVESTIGATOR/CAUSE ANALYST by Flor Elizabeth M.D. [id number]
[2023-07-10 07:43] VITALS: BMI 22.2
--- NOTE | 2023-07-10 07:44 | NMCV_ITS ---
NM milly perf SPECT r/s* [id number] Josué Wright Age: 78 Gender: M : 1945 Exam Date: 07/10/2023 08:22 Ordering Phys: Flor Elizabeth MD [email or web address]) Technologist: ORION Betancur Exam Location: [facility] Indications: CHEST PAIN STRESS TEST Please see separate stress test report in [facility] for full findings IMAGE PROTOCOL Rest/Stress 1 Lexiscan Day Radiopharmaceutical Dose (mCi) Administration Site Administered by Rest: Tc-99m 11.0 IV ORION Chiang Sestamibi Stress:Tc-99m 32.8 IV ORION Chiang Sestamibi Rest: 10-Jul-2023 60 Discovery 630 Stress: 10-Jul-2023 30 Discovery 630 0.4mg Lexiscan. Images obtained in supine and prone position. SPECT RESULTS Technical Quality: Excellent Raw Data Analysis: Normal Image Corrections: No attenuation or motion correction applied Summed Stress Score: 4 Summed Rest Score: 3 Summed Difference Score: 2 PERFUSION FINDINGS Small size perfusion abnormality of mild severity of apical inferior wall and apical septal wall on rest images with subtle reversibility in apical septal wall on supine stress images. However prone stress images show improved tracer uptake. FUNCTIONAL RESULTS (calculated via Gated SPECT) Stress Image LV EF (%): 43 Stress EDV (mL):188 TID: 1.23 Stress ESV (mL):107 FUNCTIONAL FINDINGS: The left ventricle is normal in size. Transient Ischemia Dilatation of 1.2. The left ventricular ejection fraction is mildly reduced with a value of 43%. There is mild global hypokinesis. IMPRESSIONS 1. Small size perfusion abnormality of mild severity of apical septal and apical inferior cam. This likely represents attenuation artifact or may represent old myocardial infarction in right coronary artery territory. 2. The left ventricular ejection fraction is mildly reduced with a value of 43%. There is mild global hypokinesis. 3 transient ischemic dilation index mildly increased at 1.23. This may represent hypertensive response or subendocardial ischemia. Clinical correlation is advised. 4. EKG portion of the study will be reported separately. Flor Elizabeth MD (Electronically Signed) Final Date: 15 July 2023 12:33 S
[2023-07-10] MEDS: regadenoson 0.4 Mg/5 ml Syringe IVP (08:55)
[2023-07-10 09:02] VITALS: BP 121/59; PULSE 70
== END 2023-07-10 07:28 | disposition home or self-care (01) ==
LOC: CDL 07:28
PROVIDERS: PCP Family Medicine; Visit Provider Internal Medicine Cardiovascular Disease
DX: I42.0 Dilated cardiomyopathy (principal); R07.9 Chest pain, unspecified; R06.02 Shortness of breath; I25.10 Atherosclerotic heart disease of native coronary artery without angina pectoris; I10 Essential (primary) hypertension; I50.9 Heart failure, unspecified
CPT/HCPCS: 36415; 78452; 93017; 96374; A9500; J2785

== ENCOUNTER → 2023-09-08 13:45 | Outpatient (BNVA) | payer MEDICARE, SELFPAY | PROVIDERS: PCP Family Medicine; Visit Provider Family Medicine | DX: R23.3 Spontaneous ecchymoses (principal) | CPT/HCPCS: 80053; 85025; 86140 ==

== ENCOUNTER 2023-10-08 10:57 | Outpatient (CLI) | payer MEDICARE, SELFPAY ==
--- NOTE | 2023-10-08 11:03 | XR_ITS ---
WS: [id number] PA and lateral chest, 10/08/2023 Clinical Data: cough Comparison: Portable chest, 09/08/2021 Findings: There are patchy bilateral lower lobe opacities consistent with lower lobe pneumonia and/or atelectasis. The heart is at the upper limits of normal. The aortic arch and descending thoracic aor ta show calcification and tortuosity. No pneumothorax is present. The pulmonary vascularity is not in creased. Impression: 1. Patchy bilateral lower lobe opacities which could represent acute pneumonia. 2. Atherosclerosis.
== END 2023-10-08 10:58 | disposition home or self-care (01) ==
LOC: RAD 10:59
PROVIDERS: PCP Family Medicine; Visit Provider Family Medicine
DX: R05.9 Cough, unspecified (principal)
CPT/HCPCS: 71046

== ENCOUNTER → 2023-12-17 13:54 | Outpatient (BNVA) | payer MEDICARE, SELFPAY | PROVIDERS: PCP Family Medicine; Visit Provider Internal Medicine | DX: R06.02 Shortness of breath (principal); I42.0 Dilated cardiomyopathy; I10 Essential (primary) hypertension; E78.1 Pure hyperglyceridemia; K21.9 Gastro-esophageal reflux disease without esophagitis; N40.1 Benign prostatic hyperplasia with lower urinary tract symptoms; Z87.891 Personal history of nicotine dependence | CPT/HCPCS: 99214 ==

== ENCOUNTER → 2024-05-09 14:20 | Outpatient (BNVA) | payer MEDICARE, SELFPAY | PROVIDERS: PCP Family Medicine; Visit Provider Family Medicine | DX: E11.9 Type 2 diabetes mellitus without complications (principal); I10 Essential (primary) hypertension; I42.0 Dilated cardiomyopathy; R53.83 Other fatigue; R79.82 Elevated C-reactive protein (CRP); J18.9 Pneumonia, unspecified organism; R23.3 Spontaneous ecchymoses; R06.02 Shortness of breath | CPT/HCPCS: 80053; 82607; 83880; 84443; 85025; 86140 ==

== ENCOUNTER 2024-06-21 06:53 | Outpatient (CLI) | payer MEDICARE, SELFPAY ==
--- NOTE | 2024-06-21 07:00 | USCV_ITS ---
Josué Wright Age: 79 Gender: M : 1945 Exam Date: 06/21/2024 07:05 Ordering Phys: Alex Casiano MD Technologist: LUCAS Exam Location: [facility] [place] Indication: CHF BP: 126 / 65 HR: 59 Rhythm: Sinus Technical Quality: Adequate MEASUREMENTS (Male / Female) Normal Values 2D ECHO LV Diastolic Diameter PLAX 5.6 cm 4.2 - 5.9 / 3.9 - 5.3 cm IVS Diastolic Thickness 1.4 cm 0.6 - 1.0 / 0.6 - 0.9 cm IVS Systolic Thickness 1.7 cm LVPW Diastolic Thickness 1.6 cm 0.6 - 1.0 / 0.6 - 0.9 cm LVPW Systolic Thickness 2.5 cm LVOT Diameter 2.1 cm LV Ejection Fraction 2D Teich 27.1 % LV Ejection Fraction MOD 4C 43.0 % LV Ejection Fraction MOD 2C 43.3 % LV Ejection Fraction 2C AL 46.0 % LA Diameter 3.3 cm RA Systolic Volume 4C AL 28.9 ml RA Systolic Volume 4C MOD 28.4 ml LA Sys Volume AL 40.4 cm cubed LA Sys Volume Index AL 21.4 cm cubed/m squared Aorta at Sinotubular Diameter 2.0 cm IVC Diameter 2.0 cm M-MODE LA Ao Ratio MM 0.8 AV Cusp Separation MM 1.9 cm DOPPLER AV Peak Velocity 142.3 cm/s LVOT Peak Velocity 76.0 cm/s AV Area Cont Eq vti 2.3 cm squared AV Area Cont Eq pk 1.8 cm squared MV Peak Velocity 126.0 cm/s MV Area PHT 3.8 cm squared Mitral E to A Ratio 0.5 TR Peak Velocity 212.0 cm/s TR Peak Gradient 18.0 mmHg TR Mean Velocity 179.0 cm/s TR Mean Gradient 13.5 mmHg TR Velocity Time Integral 79.8 cm TV Peak E Velocity 45.0 cm/s Right Atrial Pressure 3.0 mmHg Pulmonary Artery Systolic Pressu 21.0 mmHg PV Peak Velocity 81.0 cm/s RV Ejection Time 0.3 s FINDINGS Left Ventricle Left ventricle is mildly dilated. LV systolic function is mildly reduced with EF of40-45%. Mild global hypokinesis seen. Septal motion consistent with conduction abnormality. Grade 1 diastolic dysfunction Right Ventricle Normal in size and function Right Atrium Normal in size Left Atrium Normal in size Mitral Valve Structurally normal mitral valve. Mild mitral regurgitation Aortic Valve Structurally normal aortic valve. No significant stenosis. Mild aortic regurgitation. Tricuspid Valve Mild tricuspid regurgitation. Pulmonary artery systolic pressure is normal. Pulmonic Valve Not well visualized Pericardium Normal Aorta Normal in size IVC Appears to be normal CONCLUSIONS Left ventricle is mildly dilated. LV systolic function is mildly reduced with EF of 40-45%. Grade 1 diastolic dysfunction. Mild mitral regurgitation. Mild aortic regurgitation. Mild tricuspid regurgitation. Compared to prior echocardiogram from 2021, LV systolic function appears to be lower now and EF is 40-45%. Dejan White MD (Electronically Signed) Final Date: 26 June 2024 13:10 S
== END 2024-06-21 06:54 | disposition home or self-care (01) ==
PROVIDERS: PCP Family Medicine; Visit Provider Family Medicine
DX: I50.30 Unspecified diastolic (congestive) heart failure (principal); I42.0 Dilated cardiomyopathy
CPT/HCPCS: 93306

== ENCOUNTER → 2024-10-03 15:02 | Outpatient (BNVA) | payer MEDICARE, SELFPAY | PROVIDERS: PCP Family Medicine; Visit Provider Internal Medicine Cardiovascular Disease | DX: I42.0 Dilated cardiomyopathy (principal); C43.9 Malignant melanoma of skin, unspecified | CPT/HCPCS: 99214 ==

== ENCOUNTER → 2024-11-16 10:26 | Outpatient (BNVA) | payer MEDICARE, SELFPAY | PROVIDERS: PCP Family Medicine; Visit Provider Family Medicine | DX: I10 Essential (primary) hypertension (principal); I42.0 Dilated cardiomyopathy; R79.82 Elevated C-reactive protein (CRP) | CPT/HCPCS: 80053; 80061; 84443; 85025; 86140 ==

== ENCOUNTER 2024-11-25 11:54 | Emergency (ER) | payer MEDICARE, SELFPAY ==
[2024-11-25 12:12] VITALS: BP 126/61; PULSE 66; RESP 18; TEMP 36.6; O2SAT 97; BMI 22.1
--- NOTE | 2024-11-25 12:25 | XRR_ITS ---
PROCEDURE INFORMATION: Exam: XR Chest Exam date and time: 11/25/2024 12:27 PM Age: 79 years old Clinical indication: Cough TECHNIQUE: Imaging protocol: Radiologic exam of the chest. Views: 1 view. COMPARISON: CR XR chest 2V* [id number] 10/08/2023 11:15 AM FINDINGS: Lungs: There is diffuse coarsening of the interstitial markings throughout the lungs, which appear chronic. There is increased density peripherally in the left mid lung, new since the prior study, suspicious for an acute infiltrate. There is linear parenchymal scar in the right mid lung and mild bibasilar parenchymal scar. Pleural spaces: No significant pleural effusion. No pneumothorax. Heart/Mediastinum: Mildly enlarged, stable. Bones/joints: Intact. There are degenerative changes throughout the thoracic spine. Other findings: None. XR/XR chest 1V portable [id number] IMPRESSION: 1. Increased density peripherally in the left mid lung, new since October 08, 2023, suspicious for an acute infiltrate. 2. Diffusely coarsened interstitial markings throughout the lungs with areas of parenchymal scar in the right mid lung and bilateral lower lobes, not significantly changed.
--- NOTE | 2024-11-25 12:28 | W.ED.WEAKNES ---
HPI - Weakness General: Chief complaint: Weakness Stated complaint: high BP Time Seen by Provider: 11/25/24 12:18 History of Present Illness: 79-year-old male presents emergency room concerned about low blood pressure. He Stecher checked his blood pressure at home and report his blood pressure is 90/40. He called his primary care doctor's office, to the emergency room. He is on carvedilol and tamsulosin alone. Reviewing his chart he seen In the office earlier this month and was complaining of some shortness of breath. He was prescribed an antibiotic he states he completed his symptoms are still present he does notice a much of a productive cough as he did earlier this month. He has a history of hypothyroidism his TSH was checked on 11/16/2024 and was euthyroid. He denies any chest pain at this time no abdominal pain no dysuria urgency or frequency no fevers. Associated symptoms: Denies chest pain, chills, dysuria or fever(s) Review of Systems Const: Reports: fatigue and malaise; Denies: fever(s) or chills Card: Denies: chest pain Resp: Denies: dyspnea GI: Denies: abdominal pain : Denies: dysuria, urinary frequency or urinary urgency Musc: Denies: neck pain or back pain Skin/Breast: Denies: rash PFSH ED PFSH: Medical History Diverticulosis Iron deficiency Gout GERD (gastroesophageal reflux disease) Hx of Clostridium difficile infection Hypertriglyceridemia DVT of leg (deep venous thrombosis) Cardiomyopathy HTN (hypertension) BPH loc w urin obs/LUTS Gross hematuria Hydrocele, bilateral Hematospermia Elevated PSA Surgical History S/P skin cancer resection Hx of arthroscopy of left knee Hx of hand surgery Family History Mother , AT AGE 62 STOMACH CANCER Cancer Father Diabetes Sister Cancer Social History Smoking and tobacco/nicotine status: former use of tobacco/nicotine Alcohol intake: unknown Substance/Drug Use: unknown Adopted: No Caregiver/support person: No Household members: spouse Marital status: Current occupational status: retired Physical Exam Const: GENERAL APPEARANCE: cooperative ORIENTATION/CONSCIOUSNESS: Yes awake, Yes oriented to person, Yes oriented to place and Yes oriented to time HENMT: COMMON NORMALS: normocephalic, atraumatic and hearing grossly normal bilaterally HEAD & SCALP: normocephalic and atraumatic Resp: COMMON NORMALS: normal respiratory effort, No retractions and No use of accessory muscles AUSCULTATION: rhonchi Cardio: COMMON NORMALS: regular rate, regular rhythm and No murmurs present (Cardio) RATE: regular rate RHYTHM: regular rhythm GI: COMMON NORMALS: Soft to palpation and No hepatosplenomegaly present AUSCULTATION: Yes normoactive bowel sounds PALPATION: Yes Soft to palpation, No Tenderness to palpation present (GI), No Guarding due to palpation present (GI) and Yes No hepatosplenomegaly present Extremity: COMMON NORMALS: normal to inspection, capillary refill normal, no clubbing, cyanosis or edema, no calf tenderness and no pedal edema Neuro: SENSORIUM/ORIENTATION: Yes oriented to person, Yes oriented to place and Yes oriented to time Skin: COMMON NORMALS: no rashes or lesions noted GENERAL SKIN EXAM: no rashes or lesions noted Course Vital Signs: Vital signs: Vital Signs Temperature 97.8 F 11/25/24 12:12 Pulse Rate 59 L 11/25/24 15:32 Respiratory Rate 18 11/25/24 12:48 Blood Pressure 136/77 11/25/24 15:32 Pulse Oximetry 98 11/25/24 15:32 Oxygen Delivery Me thod Room Air 11/25/24 12:12 MDM - Weakness Medical Decision Making Chest x-ray shows possible pneumonia. Other laboratory tests did not show significant abnormalities. Troponin did not trend up significantly EKG does not show any acute changes. He is not complaining of any chest discomfort at send will start him on oral antibiotics. Cefdinir 300 twice daily continue his current medications recheck with his primary care doctor if has any worsening or changes symptoms. Blood pressure was normal while the patient was here no changes made. Medical Records I reviewed the patient's medical records. Lab Data I reviewed the patient's lab results. 11/25/24 12:41 11/25/24 12:41 Radiology Impressions Chest X-Ray 11/25/24 12:25 IMPRESSION: 1. Increased density peripherally in the left mid lung, new since October 08, 2023, suspicious for an acute infiltrate. 2. Diffusely coarsened interstitial markings throughout the lungs with areas of parenchymal scar in the right mid lung and bilateral lower lobes, not significantly changed. Laboratory Results WBC 7.12 10^3/uL (3.29-11.43) 11/25/24 12:41 RBC 4.14 10^6/uL (3.85-5.65) 11/25/24 12:41 Hgb 12.70 g/dL (11.27-16.99) 11/25/24 12:41 Hct 38.9 % (37-53) 11/25/24 12:41 MCV 94.0 fl (82-101) 11/25/24 12:41 MCH 30.7 pg (27-33) 11/25/24 12:41 MCHC 32.6 g/dL (30-55) 11/25/24 12:41 RDW 13.3 % (12.1-15.1) 11/25/24 12:41 Plt Count 264 10^3/cmm (157-399) 11/25/24 12:41 MPV 9.6 fL (7.4-10.4) 11/25/24 12:41 Neut % (Auto) 75.8 % 11/25/24 12:41 Lymph % (Auto) 15.7 % 11/25/24 12:41 Sumner % (Auto) 6.2 % 11/25/24 12:41 Eos % (Auto) 1.1 % 11/25/24 12:41 Baso % (Auto) 0.8 % 11/25/24 12:41 Neut # (Auto) 5.39 10^3/uL (1.8-7.7) 11/25/24 12:41 Lymph # (Auto) 1.1 10^3/uL (0.8-4.8) 11/25/24 12:41 Sumner # (Auto) 0.4 10^3/uL (0.2-0.9) 11/25/24 12:41 Eos # (Auto) 0.1 10^3/uL (0.0-0.8) 11/25/24 12:41 Baso # (Auto) 0.1 10^3/uL (0.0-0.1) 11/25/24 12:41 Nucleated RBC % (auto) 0 % 11/25/24 12:41 Nucleated RBCs # 0.0 /100WBC 11/25/24 12:41 Sodium 138 mmol/L (136-145) 11/25/24 12:41 Potassium 4.2 mmol/L (3.5-5.1) 11/25/24 12:41 Chloride 104 mmol/L (98-107) 11/25/24 12:41 Carbon Dioxide 24 mmol/L (22-29) 11/25/24 12:41 Anion Gap 14.2 (5-19) 11/25/24 12:41 BUN 17 mg/dL (8-23) 11/25/24 12:41 Creatinine 0.8 mg/dL (0.7-1.2) 11/25/24 12:41 GFR Calculation Not Reportable 11/25/24 12:41 Glucose 85 mg/dL (65-115) 11/25/24 12:41 Calculated Osmolality 287 mOsm/kg (285-295) 11/25/24 12:41 Calcium 8.7 mg/dL (8.5-10.5) 11/25/24 12:41 Total Bilirubin 0.4 mg/dL (0.15-1.2) 11/25/24 12:41 AST 23 U/L (0-40) 11/25/24 12:41 ALT 13 U/L (0-41) 11/25/24 12:41 Alkaline Phosphatase 74 U/L (40-130) 11/25/24 12:41 Troponin T Baseline 18 ng/L (0-15) H 11/25/24 12:41 Troponin T 120 Minute 20.31 ng/L (0-15) H 11/25/24 14:15 Delta Troponin T 2.31 ABS# (0-10) 11/25/24 14:15 Total Protein 6.6 g/dL (6.6-8.7) 11/25/24 12:41 Albumin 3.6 g/dL (3.5-5.2) 11/25/24 12:41 Globulin 3.0 g/dL (1.3-4.6) 11/25/24 12:41 Urine Color Yellow (Yellow) 11/25/24 12:56 Urine Appearance Clear (CLEAR) 11/25/24 12:56 Urine pH 6.5 (5-7) 11/25/24 12:56 Ur Specific [place] 1.004 (1.005-1.030) L 11/25/24 12:56 Urine Protein Negative (Negative) 11/25/24 12:56 Urine Glucose (UA) Negative (Normal) 11/25/24 12:56 Urine Ketones Negative (Negative) 11/25/24 12:56 Urine Blood Negative (Negative) 11/25/24 12:56 Urine Nitrate Negative (Negative) 11/25/24 12:56 Urine Bilirubin Negative (Negative) 11/25/24 12:56 Urine Urobilinogen 0.2 mg/dL (Negative) 11/25/24 12:56 Ur Leukocyte Esterase Negative (Negative) 11/25/24 12:56 Urine RBC 0-2 /hpf (0-2) 11/25/24 12:56 Urine WBC 0-5 /hpf (0-5) 11/25/24 12:56 Ur Squamous Epith Cells 0-5 /hpf (0-5) 11/25/24 12:56 Amorphous Sediment Not Reportable 11/25/24 12:56 Urine Bacteria None seen /hpf (NONE) 11/25/24 12:56 Hyaline Casts 0-4 /lpf H 11/25/24 12:56 All radiology interpretation(s) finalized by discharge EKG Data EKG 1: Interpretation: EKG November 25, 2024 1242 sinus rhythm left bundle branch block no other significant abnormalities. Ventricular rate of 63 [place] interval [address] elevations. EKG unchanged compared to 09/08/2021 Discharge Plan Discharge Patient Disposition: Home Clinical Impression: Pneumonia Condition: Stable Prescriptions: New cefdinir 300 mg capsule 300 mg PO BID Qty: 14 0RF No Action cholecalciferol (vitamin D3) 25 mcg (1,000 unit) capsule 25 mcg PO DAILY carvedilol 25 mg tablet 25 mg PO BID levothyroxine 25 mcg tablet 25 mcg PO QAM tamsulosin 0.4 mg capsule 0.4 mg PO DAILY finasteride 5 mg tablet 5 mg PO DAILY vitamin B complex Tablet 1 tab PO DAILY Discharge Orders: Discharge ED (Routine); Ordered 11/25/24 Ordered By: Lamine Goldman Referrals: Alex Casiano MD [Primary Care Provider] - Discharge Diet: Usual diet Discharge Activity: Increase activity as tolerated Patient Instructions: Opioid Safety, Pain Management Activity Restrictions/Additional Instructions: Thank you for choosing [facility] for your healthcare needs today. It is very important that you follow up as instructed or that you return to the Emergency Department should you have concerns or if your condition changes or worsens in any way. You were seen in the emergency room with complaints of shortness of breath and fatigue your blood pressure was normal. No significant elevation of your white count. There is a question on your chest x-ray of persistent pneumonia recommend you start oral antibiotics cefdinir 1 tablet twice a day for 7 days follow-up with your primary care doctor if not improving. Continue to monitor your blood pressures if they are consistently low defined as less than 100 on the top number, follow-up with your doctor to review Print Language: Pashto Coding Level of Care Code ED Air Quality Consultant for Chg Fwd Related Data Home Medications ?Medication ?Instructions ?Recorded ?Confirmed cholecalciferol (vitamin D3) 25 25 mcg PO DAILY 12/17/23 11/25/24 mcg (1,000 unit) capsule carvedilol 25 mg tablet 25 mg PO BID 11/25/24 11/25/24 finasteride 5 mg tablet 5 mg PO DAILY 11/25/24 11/25/24 levothyroxine 25 mcg tablet 25 mcg PO QAM 11/25/24 11/25/24 tamsulosin 0.4 mg capsule 0.4 mg PO DAILY 11/25/24 11/25/24 vitamin B complex 1 tab PO DAILY 11/25/24 11/25/24 Previous Rx's ?Medication ?Instructions ?Recorded cefdinir 300 mg capsule 300 mg PO BID #14 caps 11/25/24 Allergies Allergy/AdvReac Type Severity Reaction Status Date / Time aspirin AdvReac Intermediate petechia Verified 10/03/24 15:15
--- NOTE | 2024-11-25 12:42 | ECG_ITS ---
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
[2024-11-25 12:48] VITALS: BP 132/68; PULSE 68; RESP 18; O2SAT 97
[2024-11-25 12:48] LABS: Basophils # 0.1 10^3/uL (0.0-0.1); Basophils % 0.8 %; Eosinophils # 0.1 10^3/uL (0.0-0.8); Eosinophils % 1.1 %; Hematocrit 38.9 % (37-53); Lymphocytes # 1.1 10^3/uL (0.8-4.8); Lymphocytes % 15.7 %; Mean Corpuscular HGB Conc 32.6 g/dL (30-55); Mean Corpuscular Hemoglobin 30.7 pg (27-33); Mean Platelet Volume 9.6 fL (7.4-10.4); Monocytes # 0.4 10^3/uL (0.2-0.9); Monocytes % 6.2 %; Neutrophils # 5.39 10^3/uL (1.8-7.7); Neutrophils % 75.8 %; Nucleated Red Blood Cells % 0 %; Platelet Count 264 10^3/cmm (157-399); Red Blood Count 4.14 10^6/uL (3.85-5.65); Red Cell Distribution Width 13.3 % (12.1-15.1); White Blood Count 7.12 10^3/uL (3.29-11.43)
[2024-11-25 13:01] VITALS: BP 102/53; BP 125/61; BP 134/62; PULSE 63; PULSE 71
[2024-11-25 13:05] LABS: Alanine Aminotransferase 13 U/L (0-41); Albumin Level 3.6 g/dL (3.5-5.2); Alkaline Phosphatase 74 U/L (40-130); Anion Gap 14.2 (5-19); Aspartate Amino Transferase 23 U/L (0-40); Blood Urea Nitrogen 17 mg/dL (8-23); Calcium 8.7 mg/dL (8.5-10.5); Carbon Dioxide 24 mmol/L (22-29); Chloride 104 mmol/L (98-107); Creatinine Clr Calc Pharmacy 69.1709; Glucose 85 mg/dL (65-115); Osmolality Calculated 287 mOsm/kg (285-295); Potassium 4.2 mmol/L (3.5-5.1); Sodium 138 mmol/L (136-145); Total Bilirubin 0.4 mg/dL (0.15-1.2); Total Protein 6.6 g/dL (6.6-8.7)
[2024-11-25 13:20] LABS: Bilirubin Urine Negative (Negative); Blood Urine Negative (Negative); Glucose Urine UA Negative (Normal); Ketones Urine Negative (Negative); Leukocyte Esterase Urine Negative (Negative); Nitrate Urine Negative (Negative); Protein Urine Negative (Negative); Specific Gravity, Urine 1.004 (1.005-1.030); Urine Appearance Clear (CLEAR); Urine Color Yellow (Yellow); Urobilinogen Urine 0.2 mg/dL (Negative); pH Urine 6.5 (5-7)
[2024-11-25 13:25] LABS: Add Urine Microscopic? YES; Bacteria Urine None Seen /hpf; Hyaline Casts Urine 0-4 /lpf; RBC Urine 0-2 /hpf (0-2); Squamous Epithelial Cell Urine 0-5 /hpf (0-5); WBC Urine 0-5 /hpf (0-5)
[2024-11-25 14:24] LABS: Troponin(5th) Baseline 18 ng/L (0-15)
[2024-11-25 14:35] LABS: Troponin 5 2HR 20.31 ng/L (0-15); Troponin 5 2HR Delta 2.31 ABS# (0-10)
[2024-11-25 15:32] VITALS: BP 136/77; PULSE 59; O2SAT 98
== END 2024-11-25 15:33 | disposition home or self-care (01) ==
PROVIDERS: Emergency Provider Family Medicine; PCP Family Medicine
DX: J18.9 Pneumonia, unspecified organism (principal); Z87.891 Personal history of nicotine dependence; I10 Essential (primary) hypertension
CPT/HCPCS: 36415; 71045; 80053; 81001; 84484; 85025; 93005; 99285

== ENCOUNTER 2024-11-30 12:38 | Outpatient (CLI) | payer MEDICARE, SELFPAY ==
--- NOTE | 2024-11-30 13:00 | CT_ITS ---
WS: [id number] CT chest w con* [id number] HISTORY: cough TECHNIQUE: Axial imaging performed through the thorax. Coronal and sagittal reformats are submitted. All CT scans at [facility] use at least one of these dose optimization techniques: automated exposure control; mA and/or kV adjustment per patient size (includes targeted exams where dose is matched to clinical indication); or iterative reconstruction. CONTRAST: Omnipaque 350; 100 mL IV. DLP: 350.40 mGy.cm COMPARISON: 03/25/2023 Lungs and central airway: New areas of groundglass attenuation and multi lobar nodules which are associated with the tree-in-bud airspace disease. Subpleural nodules are reidentified. There are a few new areas of groundglass attenuation. Some of the nodules associated with the tree-in-bud airspace disease are probably mucus filled bronchi. Pleura: Normal. No pleural effusion. Heart and pericardium: Normal size heart with no pericardial effusion. Mediastinum and ju: Mediastinal and hilar lymph nodes measure up to 1.6 cm in diameter. Largest lymph node at the RIGHT hilum. Vessels: Mild atherosclerosis aorta. No aneurysm. Normal size pulmonary artery. Chest wall and lower neck: No soft tissue masses. Upper abdomen: Numerous hepatic cysts. No intrahepatic duct dilatation. Normal portal vein. No adrenal mass. Osseous structures: Moderate increase in thoracic kyphosis. Mild osteopenia. No acute fractures. CT/CT chest w con* [id number] IMPRESSION: 1. Progression of multilobar tree-in-bud airspace disease since 03/25/2023. Mul tiple nodules associated with tree-in-bud airspace disease are likely mucous pl ugging within areas of bronchiectasis or inflammatory exudate within the bronch ioles. Tree-in-bud airspace disease consistent with small vessel airways diseas e with bronchial distention. 2. Subpleural nodules are stable. 3. Mediastinal and hilar mildly enlarged lymph nodes. Largest lymph node at th e RIGHT hilum measures 1.6 cm and may be reactive.
[2024-11-30] MEDS: iohexol 350 mg/mL 500 mL Btl (per mL) IV (13:04)
== END 2024-11-30 12:39 | disposition home or self-care (01) ==
LOC: RAD 12:39
PROVIDERS: PCP Family Medicine; Visit Provider Family Medicine
DX: J18.9 Pneumonia, unspecified organism (principal); R05.9 Cough, unspecified; R91.8 Other nonspecific abnormal finding of lung field; R59.0 Localized enlarged lymph nodes; I70.0 Atherosclerosis of aorta; K76.89 Other specified diseases of liver; M40.294 Other kyphosis, thoracic region; M85.80 Other specified disorders of bone density and structure, unspecified site
CPT/HCPCS: 71260

== ENCOUNTER → 2025-01-19 12:07 | Outpatient (BNVA) | payer MEDICARE, SELFPAY | PROVIDERS: PCP Family Medicine; Visit Provider Family Medicine | DX: R53.83 Other fatigue (principal); R79.82 Elevated C-reactive protein (CRP) | CPT/HCPCS: 80053; 82306; 82607; 83880; 84443; 85025; 85651; 86140 ==

== ENCOUNTER → 2025-02-14 15:40 | Outpatient (BNVA) | payer MEDICARE, SELFPAY | PROVIDERS: PCP Family Medicine; Visit Provider Family Medicine | DX: R35.0 Frequency of micturition (principal); R53.83 Other fatigue | CPT/HCPCS: 81000; 87086 ==

== ENCOUNTER 2025-03-06 11:05 | Outpatient (CLI) | payer MEDICARE, SELFPAY ==
--- NOTE | 2025-03-06 11:00 | CT_ITS ---
WS: [id number] CT chest w con* [id number] HISTORY: Need more recent CT, cough and congestion. TECHNIQUE: Axial imaging performed through the thorax. Coronal and sagittal reformats are submitted. All CT scans at [facility] use at least one of these dose optimization techniques: automated exposure control; mA and/or kV adjustment per patient size (includes targeted exams where dose is matched to clinical indication); or iterative reconstruction. CONTRAST: Omnipaque 350; 100 mL IV. DLP: 301.54 mGy.cm COMPARISON: 11/30/2024, 03/25/2023 Lungs and central airway: Moderate pulmonary hyperexpansion with flattened diaphragms. Slow progression of pleural-based opacifications and pulmonary opacifications since 03/25/2023. There is also been a progression since 11/30/2024. Multilobar areas of consolidation. Nodular consolidations with reticular nodular components. 4 mm long-term stability nodule LEFT lower lobe. Additional well-circumscribed 4 mm nodule RIGHT lower lobe. Bronchiectasis associated with the areas of reticular nodular consolidations. Suspect there is mucous plugging resulting in postobstructive atelectasis. Pleura: Normal. No pleural effusion. Heart and pericardium: Normal size heart with no pericardial effusion. Mediastinum and ju: Indeterminate mediastinal and hilar lymph nodes. Largest lymph nodes measure up to 10 mm at the hilar regions. No obvious progression. Vessels: Mild atherosclerosis aorta. No aneurysm. Normal size pulmonary artery. Chest wall and lower neck: No soft tissue masses. Upper abdomen: Hepatic cysts. No adrenal mass. Osseous structures: Marked increase in thoracic kyphosis. CT/CT chest w con* [id number] IMPRESSION: 1. Chronic emphysema. 2. Mild progression of multilobar areas of reticular nodular consolidations an d associated bronchiectasis. Slowly progressed since 03/25/2023. Also slight pro gression since the most recent study of 11/30/2024. Consider changes of organizi ng pneumonia and progression of pulmonary fibrosis. 3. Indeterminant bilateral hilar lymph nodes measuring up to 10 mm. No progres milton. 4. Hepatic cysts.
[2025-03-06] MEDS: iohexol 350 mg/mL 500 mL Btl (per mL) IV (11:24)
[2025-03-06 17:20] LABS: INR 0.93 (0.8-1.2); Prothrombin Time 13.10 SECONDS (12.1-14.9)
[2025-03-06 17:21] LABS: Partial Thromboplastin Time 32.8 SECONDS (23.9-36.7)
[2025-03-08 13:19] LABS: COMPLEMENT COMPONENT C3C 122 mg/dL; COMPLEMENT COMPONENT C4C 26 mg/dL
[2025-03-08 14:35] LABS: COMPLEMENT, TOTAL (CH50) 45 U/mL (31-60)
[2025-03-08 16:00] LABS: SS A Ro Sjogrens Antibody <1.0 NEG AI (<1.0 NEG)
[2025-03-09 03:15] LABS: CENTROMERE B ANTIBODY <1.0 NEG AI (<1.0 NEG); JO-1 ANTIBODY <1.0 NEG AI (<1.0 NEG); RNP ANTIBODY <1.0 NEG AI (<1.0 NEG); SCL-70 ANTIBODY <1.0 NEG AI (<1.0 NEG); SS-B <1.0 NEG AI (<1.0 NEG)
[2025-03-10 10:56] LABS: Aspergillus versicolor IgG 19.6 mcg/mL (<35.0)
[2025-03-10 14:00] LABS: THYROID PEROXIDASE ANTIBODIES 4 IU/mL (<9)
[2025-03-11 16:56] LABS: Aspergillus Source WHOLE BLOOD; Aspergillus Supp NOT DETECTED; Aspergillus Terreus DNA NOT DETECTED
[2025-03-11 17:46] LABS: Aspergillus AG,EIA,Serum NOT DETECTED; Aspergillus Galactomannan Inde <0.50
[2025-03-13 10:39] LABS: DNA AB (DS) CRITHIDIA,IFA NEGATIVE (NEGATIVE)
[2025-03-13 13:14] LABS: Myositis EJ AB <11 SI (<11); Myositis JO-1 AB <11 SI (<11); Myositis MDA-5 AB <11 SI (<11); Myositis MI-2 Alpha AB <11 SI (<11); Myositis MI-2 Beta AB <11 SI (<11); Myositis NXP-2AB <11 SI (<11); Myositis OJ AB <11 SI (<11); Myositis PL-12 AB <11 SI (<11); Myositis PL-7 AB <11 SI (<11); Myositis SRP AB <11 SI (<11); Myositis TIF-1y AB <11 SI (<11)
[2025-03-13 14:19] LABS: Thermoactinomyces candidus Ab NEGATIVE (NEGATIVE)
[2025-03-15 00:19] LABS: Aspergillus niger (m207) IgE <0.10 kU/L; Aspergillus niger Class 0
== END 2025-03-06 11:06 | disposition home or self-care (01) ==
LOC: RAD 11:06
PROVIDERS: PCP Family Medicine; Visit Provider Internal Medicine
DX: J43.9 Emphysema, unspecified (principal); J18.9 Pneumonia, unspecified organism; Z87.891 Personal history of nicotine dependence; R13.10 Dysphagia, unspecified; R59.0 Localized enlarged lymph nodes; I25.10 Atherosclerotic heart disease of native coronary artery without angina pectoris; I10 Essential (primary) hypertension; E03.9 Hypothyroidism, unspecified; R91.8 Other nonspecific abnormal finding of lung field; R06.02 Shortness of breath; J98.4 Other disorders of lung; K76.89 Other specified diseases of liver; J98.11 Atelectasis
CPT/HCPCS: 36415; 71260; 82085; 82784; 82785; 84182; 85610; 85651; 85730; 86001; 86003; 86140; 86160; 86162; 86200; 86235; 86255; 86331; 86376; 86431; 86606; 86609; 87305; 87385; 87798; 99205; Q3014

== ENCOUNTER 2025-03-10 14:46 | Outpatient (CLI) | payer MEDICARE, SELFPAY ==
--- NOTE | 2025-03-10 15:00 | PETR_ITS ---
PROCEDURE INFORMATION: Exam: PET/CT Skull Base to Mid-thigh Exam date and time: 03/10/2025 3:47 PM Age: 80 years old Clinical indication: Condition or disease; Condition/disease: Lung nodule LABS AND CLINICAL REPORTS: Glucose: 95 mg/dl Treatment strategy for malignancy (PET staging): Initial Staging (PI) TECHNIQUE: Imaging protocol: Following at least four-hour fasting and following the injection of radiopharmaceutical, low dose CT images were obtained. Then, PET images were obtained. Attenuation corrected images were constructed using the CT scan. Fused images of PET and CT were reviewed. The standardized uptake values (SUV) reported below are maximum values within a region of interest, expressed in gm/ml. Exam includes orbital meatal line to mid-thigh. SUV normalization method: BodyWeight Radiopharmaceutical: 12.25 mCi F-18 FDG (Fluorodeoxyglucose), IV. Time of imaging post radiopharmaceutical administration: 46 minutes Injection site: left ac COMPARISON: CT chest w con* [id number] 03/06/2025, 11/30/2024, 03/25/2023 FINDINGS: Brain: On the nondedicated limited brain images there is no abnormal distribution of the radiotracer in the rawls and white matter. Paranasal sinuses: Mildly increased uptake of 5.2 SUV in the mucosa of nearly completely opacified right maxillary sinus suggestive of chronic sinusitis. Mild mucosal thickening inferiorly in the left maxillary sinus with no air-fluid level. Pharynx: Normal distribution of the radiotracer in nasopharyngeal, and oropharyngeal structures. Larynx: Normal distribution of the radiotracer in laryngeal structures. Lungs, pleura and trachea: Multiple small bilateral FDG avid nodules with the highest uptake of 10.4 SUV in the lingula, and 4.7 SUV in the right middle lobe with partial atelectasis associated with clusters of these nodules. Borderline uptake of 2.3 SUV within a cluster of tiny nodules in the right lower lobe. Other lung nodules are not FDG avid as, for example, 1 cm right upper lobe nodule on axial image 85 stable in size since prior exam of 03/25/2023 compatible with benign granuloma. There is stable calcified granuloma in the right lower lobe. There is trace amount of left pleural effusion. Heart: Normal physiologic uptake. There is no cardiomegaly. Coronary artery calcification is present. There is no pericardial effusion. Mediastinal space: No abnormal uptake. Liver: Normal size without abnormal radiotracer uptake. There are bilobar simple cysts measuring up to 3.4 cm. Gallbladder and biliary ducts: No abnormal uptake. Pancreas: Normal distribution of radiotracer. Spleen: Normal size without abnormal radiotracer uptake. No splenomegaly. Punctate calcified granulomas. Adrenal glands: No abnormal uptake. No nodules. Kidneys and ureters: Normal physiologic uptake. No hydronephrosis. 9.3 cm simple cyst exophytic caudally from the lower pole of the right kidney. Stomach and bowel: No abnormal uptake. Diverticulosis of the sigmoid colon. Intraperitoneal and retroperitoneal spaces: No abnormal uptake. No ascites. Bladder: Normal physiologic uptake. Reproductive: No abnormal uptake. The prostate is enlarged (4.7 x 4.6 x 5 cm). Vasculature: No abnormal uptake. No aortic aneurysm. 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 Lymph nodes: Increased uptake within borderline prominent in size mediastinal lymph nodes (12.9 SUV within right paratracheal lymph node, 11.2 SUV in the subcarinal lymph node with a maximal short axis of 1.3 cm), and within normal size right hilar lymph node (6.7- 7.7 SUV). Stable sequela of exposure to granulomatous disease with calcified granulomas in the subcarinal and bilateral hilar lymph nodes. No FDG avid lymphadenopathy in the head, neck, abdomen, pelvis, and extremities. Skeleton: No abnormal uptake in the visualized axial and appendicular skeleton. Soft tissues: No abnormal uptake in the visualized head, neck, chest, abdomen, pelvis, and extremities. METRICS: Mediastinal blood pool maximal uptake is 2.2 SUV. Liver maximal uptake is 2.8 SUV. PET/PET skull to thigh INIT [id number] IMPRESSION: 1. FDG avid findings in the chest include bilateral clusters of small nodules in the peribronchial distribution most prominent in the right middle lobe and the lingula with the highest uptake of 10.4 SUV, and intense uptake up to 12.9 SUV within mediastinal and right hilar lymph nodes. While malignancy cannot be excluded based on degree on FDG uptake it is felt unlikely based on distribution pattern. Benign inflammatory process is favored. 2. Mildly increased uptake in the mucosal nearly completely opacified right maxillary sinus suggestive of age indeterminate sinusitis. 3. No other abnormal FDG avid findings outside of the chest.
== END 2025-03-10 14:47 | disposition home or self-care (01) ==
LOC: RAD 14:48
PROVIDERS: PCP Family Medicine; Visit Provider Internal Medicine
DX: R91.8 Other nonspecific abnormal finding of lung field (principal)
CPT/HCPCS: 78815; A9552

== ENCOUNTER 2025-03-15 12:35 | Outpatient (CLI) | payer MEDICARE, SELFPAY ==
[2025-03-15 13:02] VITALS: PULSE 67; RESP 16; O2SAT 96
== END 2025-03-15 12:36 | disposition home or self-care (01) ==
LOC: RT 12:38
PROVIDERS: PCP Family Medicine; Visit Provider Internal Medicine
DX: R91.8 Other nonspecific abnormal finding of lung field (principal)
CPT/HCPCS: 94060; 94726; 94729; J7613

== ENCOUNTER 2025-03-16 09:38 | Outpatient (CLI) | payer MEDICARE, SELFPAY ==
--- NOTE | 2025-03-16 10:00 | FL_ITS ---
WS: [id number] Modified barium swallow, 03/16/2025 Clinical Data: Difficulty swallowing, food sticks in mid esophagus. Comparison: None. Fluoroscopy time: 2min [id number] # of spot films: Findings: The patient had premature spill with food and liquids. There was residue in the oral cavity which cleared with double swallows. There is penetration with thin liquids but not with solid material. No aspiration occurred. Residue did occur in the vallecula and piriform sinuses which cleared with swallowing. The patient ingested the barium tablet and it flowed normally from the oral cavity to the hypopharynx. Then in the midesophagus it did not progress until additional liquid was swallowed. The barium tablet did pass into the stomach. FL/FL barium swallow modifd [id number] Impression: 1. Premature spill with food and liquids. 2. Penetration with thin liquids but not solid material and there was no aspira tion. 3. Barium tablet stuck temporarily in mid esophagus until additional liquid was swallowed.
== END 2025-03-16 09:39 | disposition home or self-care (01) ==
LOC: RAD 09:40
PROVIDERS: PCP Family Medicine; Visit Provider Internal Medicine
DX: R13.10 Dysphagia, unspecified (principal)
CPT/HCPCS: 74230; 92611

== ENCOUNTER 2025-03-23 08:44 | Outpatient (CLI) | payer MEDICARE, SELFPAY ==
--- NOTE | 2025-03-23 08:30 | CT_ITS ---
WS: [id number] CT CHEST TECHNIQUE: Noncontrast CT of the chest with coronal and sagittal reformatted images. CLINICAL INFORMATION: Lung nodule needing Robotic bronch COMPARISON: CT 03/06/[address] 03/10/2025 DLP: [address] scans at [facility] use at least one of these dose optimization techniques: automated exposure control; mA and/or kV adjustment per patient size (includes targeted exams where dose is matched to clinical indication); or iterative reconstruction. FINDINGS: Stable previously described findings of FDG-avid clusters of small peribronchial nodules most prominent in the RIGHT middle lobe and lingula. In addition FDG- avid activity in the mediastinal and RIGHT hilar lymph nodes. Chronic emphysematous changes. Hyperinflation. Areas of bronchiectasis associated with reticular opacities. Partially visualized hepatic cyst. Normal caliber thoracic aorta. Aortic calcification. Coronary calcification. Small esophageal hiatal hernia. CT/CT chest ION (PULM ONLY) [id number] IMPRESSION: Images obtained for intraoperative guidance purposes
== END 2025-03-23 08:45 | disposition home or self-care (01) ==
LOC: RAD 08:46
PROVIDERS: PCP Family Medicine; Visit Provider Internal Medicine
DX: R91.8 Other nonspecific abnormal finding of lung field (principal)
CPT/HCPCS: 71250

== ENCOUNTER 2025-03-23 09:19 | Day surgery (SDC) | payer MEDICARE, SELFPAY ==
[2025-03-23] VITALS (12 sets, daily range): BP systolic 92–134; BP diastolic 38–72; PULSE 59–69; RESP 14–18; TEMP 36.2–36.8; O2SAT 93–98; BMI 21.6
--- NOTE | 2025-03-23 09:48 | ANES.PREANE2 ---
Pre-Anesthetic Assessment Height/Weight: Height 1.73 m Weight 64.41 kg Operation Date: 03/23/25 11:50 Proposed Procedures p Ion Robotic Bronchoscopy [id number] [id number] 25599 08712 83930 42714 85895 55622 [id number] [id number](Not Applicable) - Yasir Donahue MD s Ebus(Not Applicable) - Yasir Donahue MD Familial anesthetic complications: None Was Beta Derrell taken within 24 hours: Yes Was Clonidine taken within 24 hours: N/A Last intake: > 8hrs Social No alcohol and No tobacco Exam alert, oriented x 3, clear to auscultation bilaterally and regular rate & rhythm Airway Mallampati: Class I Dentition: false Pulmonary Frequent pneumonia CV/HEM Coronary Artery Disease, Congestive Heart Failure (Improving ER) and Hypertension negative stress test a few years ago Anesthetic Plan ASA status: 4 Anesthesia: General Risk of > 500 ml blood loss (7ml/kg in children): No Medications/Allergies Home Medications ?Medication ?Instructions ?Recorded ?Confirmed ?Last Taken ?Type cholecalciferol (vitamin D3) 25 25 mcg PO DAILY 12/17/23 03/22/25 03/22/25 History mcg (1,000 unit) capsule finasteride 5 mg tablet 5 mg PO DAILY 11/25/24 03/22/25 03/22/25 History levothyroxine 25 mcg tablet 25 mcg PO QAM 11/25/24 03/22/25 03/22/25 History tamsulosin 0.4 mg capsule 0.4 mg PO DAILY 11/25/24 03/22/25 03/22/25 History vitamin B complex 1 tab PO DAILY 11/25/24 03/22/25 03/22/25 History carvedilol 12.5 mg tablet 12.5 mg PO BID #60 tabs 11/28/24 03/22/25 03/22/25 Rx Allergies Allergy/AdvReac Type Severity Reaction Status Date / Time aspirin AdvReac Intermediate petechia Verified 03/06/25 13:29 [facility] Anesthesia Medical History (Updated 03/06/25 @ 15:49 by MACHELLE Johnson) Recurrent pneumonia Diverticulosis Iron deficiency Gout GERD (gastroesophageal reflux disease) Hx of Clostridium difficile infection Hypertriglyceridemia DVT of leg (deep venous thrombosis) Cardiomyopathy HTN (hypertension) BPH loc w urin obs/LUTS Gross hematuria Hydrocele, bilateral Hematospermia Elevated PSA Surgical History S/P skin cancer resection Hx of arthroscopy of left knee Hx of hand surgery Family History Mother , AT AGE 62 STOMACH CANCER Cancer Father Diabetes Sister Cancer Social History Smoking and tobacco/nicotine status: former use of tobacco/nicotine (50+ years ago) Alcohol intake: unknown Substance/Drug Use: unknown Adopted: No Caregiver/support person: No Household members: spouse Marital status: Current occupational status: retired Data Anesthesia Cardiac Studies: Echocardiogram 06/21/24 Sestamibi Stress Test (Cardiology) 07/10/23
--- NOTE | 2025-03-23 09:51 | SC_ITS ---
WS: [id number] C-ARM RADIOGRAPHS CHEST; 1029 IMAGES HISTORY: ION COMPARISON: Chest CT 03/23/2025 Intraprocedural imaging during navigational bronchoscopy. Biopsy obtained of nodules in the RIGHT LEFT upper lobe. SC/C-arm FL for Bronchoscopy IMPRESSION: Intraprocedural imaging during navigational bronchoscopy.
--- NOTE | 2025-03-23 10:10 | W.PM.OPSUD ---
Surgery/Procedure H&P Update DATE OF PROCEDURE: March 23, 2025 DATE H&P PERFORMED: 03/06/25 CHANGES TO PREVIOUS DOCUMENTATION: Patient was seen and examined this morning. No significant change in his clinical status since I saw him on 03/2025. Discussed the risks and benefits with the patient he agreed to proceed forward with the bronchoscopy PLANNED PROCEDURE: Operation Date: 03/23/25 11:50 Proposed Procedures p Ion Robotic Bronchoscopy [id number] [id number] 80445 93750 89189 02716 65318 17650 06349 [id number] 12097 [id number](Not Applicable) - Yasir Donahue MD s Ebus(Not Applicable) - Yasir Donahue MD
--- NOTE | 2025-03-23 12:09 | XRR_ITS ---
PROCEDURE INFORMATION: Exam: XR Chest Exam date and time: 03/23/2025 12:13 PM Age: 80 years old Clinical indication: Pain; Chest pressure; Additional info: Post ion TECHNIQUE: Imaging protocol: Radiologic exam of the chest. Views: 1 view. COMPARISON: 1. CT chest ION (PULM ONLY) [id number] 03/23/2025 9:04 AM 2. CR XR chest 1V portable [id number] 11/25/2024 12:27 PM FINDINGS: Lungs: Evidence of prior calcified granulomas disease. Opacity mid to lower left lung/hemithorax laterally appears slightly increased. Additional scattered patchy and linear opacities portions of lungs bilaterally, similar to 11/25/2024. Pleural spaces: No large or obvious pneumothorax nor pleural effusion seen. Heart/Mediastinum: Stable heart size. Vasculature: Atherosclerotic disease. Bones/joints: Degenerative changes spine. XR/XR chest 1V portable [id number] IMPRESSION: 1. Opacity mid to lower left lung/hemithorax laterally appears slightly increased. Additional scattered patchy and linear opacities portions of lungs bilaterally, similar to 11/25/2024. 2. No large or obvious pneumothorax nor pleural effusion seen.
--- NOTE | 2025-03-23 12:12 | P.BOP_ITS ---
Interventional Pulmonary Immediate Brief Operative Note: * Date of Procedure:?03/23/2025 * Preoperative Diagnosis: Right and Left upper lobe lung nodules and mediastinal/hilar lymph adenopathy * Postoperative Diagnosis:?[Same as pre-op] * Procedures Performed: Navigational bronchosocpy and EBUS staging * Surgeon / Historical Archeologist:?Yasir Donahue MD * Anesthesia: * ?General anesthesia * Findings: Lung nodules. mediastinal and hilar lymphadenopathy. LIU small endobronchial lesion. Black discoloration of the distal LIU, RML and RUL airways * Estimated Blood Loss (EBL):?[Minimal] * Specimens: * LIU lobe BAL fluid * ?TBNA from station(s) LIU nodules, 11R, 4R and 7 * ?Forceps biopsy from LIU nodules * Brushing of LIU nodules * LIU EBBX * Complications:?None * Disposition:?Transferred to PACU in stable condition. Yasir Donahue MD, FACP Interventional Pulmonogist
--- NOTE | 2025-03-23 12:12 | W.PM.BPON ---
Interventional Pulmonary Immediate Brief Operative Note: Date of Procedure:?03/23/2025 Preoperative Diagnosis: Right and Left upper lobe lung nodules and mediastinal/hilar lymph adenopathy Postoperative Diagnosis:?[Same as pre-op] Procedures Performed: Navigational bronchosocpy and EBUS staging Surgeon / Corporate Planner:?Yasir Donahue MD Anesthesia: ?General anesthesia Findings: Lung nodules. mediastinal and hilar lymphadenopathy. LIU small endobronchial lesion. Black discoloration of the distal LIU, RML and RUL airways Estimated Blood Loss (EBL):?[Minimal] Specimens: LIU lobe BAL fluid ?TBNA from station(s) LIU nodules, 11R, 4R and 7 ?Forceps biopsy from LIU nodules Brushing of LIU nodules LIU EBBX Complications:?None Disposition:?Transferred to PACU in stable condition. Yasir Donahue MD, FACP Interventional Pulmonogist
[2025-03-23] MEDS: lidocaine 2% INJ 20 mL XX (12:16)
[2025-03-23] MEDS: EPINEPHrine 1 MG in sodium chloride 0.9% 19 ML XX (12:16)
--- NOTE | 2025-03-23 13:23 | SUR.PHASEII ---
13:15 WARM BLANKETS APPLIED. TOLERATING PO FLUIDS WELL. GOOD CHEST RISE AND FALL. NO DYSPNEA NOTED.
--- NOTE | 2025-03-23 15:33 | ANE.PACU2 ---
Inpatient post-anesthesia follow up: Airway intact: Yes Vital signs: Temperature 98.3 F Pulse Rate 61 Respiratory Rate 16 Blood Pressure 119/51 Pulse Oximetry 97 Oxygen Delivery Me thod Room Air Oxygen Flow Rate 8 Fraction of Inspir ed Oxygen Hydration adequate: Yes Nausea and vomiting: No Pain level: 1 Mental status: Baseline
--- NOTE | 2025-03-23 20:48 | PM.OP ---
Operative Report Date of procedure: March 23, 2025 Pre-op diagnosis: Bilateral lung nodules Mediastinal and Hilar lymphoadenopathy Post-op diagnosis: Same Surgeon: Yasir Donahue MD Estimated blood loss: Minimal Complications: None Findings: Attending: Yasir Donahue MD, FACP, FASN Anesthesia: General anesthesia per anesthesia team Procedure: Pre-Anesthesia Assessment [place] Protocol:Patient's identity was confirmed using full name, date of , and medical record number. Identity verification included a review of all relevant medical records, history, physical examination, medications, allergies, and previous anesthesia tolerance. Risks, benefits, sedation options, and associated risks were reviewed with the patient, and informed consent was obtained after addressing all questions. Time-Out: Immediately before the procedure, a time-out was conducted to confirm patient identification, procedure details, consent, image labeling, and the need for prophylactic antibiotics. This was verified by the physician, nurse, anesthesiologist, and audiovisual equipment operator. Outcome: The procedure was completed without difficulty, and the patient tolerated it well. Findings: A thorough airway exam was performed after passage of the bronchoscope. The trachea was anatomically normal. The right sided airway was anatomically normal without endobronchial lesions but there was evidence of black discoloration of the distal airways serg in the RUL and RML. The left sided airway was anatomically normal with evidence of small endobronchial lesion at the left hilum. Bilateral significant RUL and LIU mucosal plugs that require theraputic aspirations which lead to airway patency. (18363) The prior bronchoscope was removed from the airway. The [employer] Robotic Bronchoscopy platform was moved into place. The robotic bronchoscope was inserted into the endotracheal tube with care. The position of the bronchoscope was registered to a pre-existing CT scan using shape-sensing virtual bronchoscopy technology (17169). We navigated towards the lesion in the left upper lobe nodule using a pre-planned route using virtual bronchoscopy Prior to sampling, confirmation of lesion location was done using: ?- Radial ultrasound probe with a concentric view (39360), ?- Fluroscopy with a tool overlying the lesion on at least one visual plane. ?- Virtual target located directly within the path of intended biopsy direction on EMN, ?- [facility] Beam intraoperative CT was performed 2 time(s).? The intraoperative CT imaging interpretation was utilized for guidance for needle placement. Imaging interpretation by me shows the persistent lesion as well as a tool within the lesion (74236) ?- CBCT data from the intraoperative imaging was integrated into the ION navigation software and the virtual lesion was updated. After confirming our location, we proceeded to sampling. - Transbronchial needle aspiraiton (TBNA) was performed of the lesion using the 23-gauge ION TBNA needle.? A total of 6 passes were formed. (65970) - Transbronchial biopsies of the lesion were performed using the captura 1.8 mm forceps.? A total of 12 samples were obtained. (30065) - Endobronchial brushings performed down the airway towards the lesion.? A total of 2 brushings were obtained. (74521) - A bronchoalveolar lavage was performed of the lobe containing the target lesion with 120 mL of saline instilled and 40 mL of effluent returned.? Additional rinse from the robotic bronchoscope lumen was added to the sample after removal of the scope. (31372) Then we tried to navigate the robotic bronchosocpy to the RUL nodule but the angle to the subsegs of the anterior seg was veyr acute and scope was not able to get close to the nodule. The decision was made not to just do BAL. A bronchoalveolar lavage was performed in the RUL containing the target lesion with 60 mL of saline instilled and 30 mL of effluent returned.? The prior bronchoscope was removed from the airway and the EBUS scope was inserted. A complete curvilinear EBUS procedure was performed of the following lymph nodes: Level 11R station was identified with the EBUS scope but did not meet criteria for sampling Level 4R station was identified with the EBUS scope at the lateral RMSB and 4 passes were made using a 22G Olympus TBNA needle. Level 7 station was identified with the EBUS scope at the medial LMSB/RMSB and 4 passes were made using a 22G Olympus TBNA needle. Level 4L station was identified with the EBUS scope but didnt meeat the criteria of sampling. Level 11L station was identified with the EBUS scope but didnt meeat the criteria of sampling. EBUS scope was removed and switch to the T-scope. Then Endobronchial biopsy of the left hilum nodule was performed using a regular forceps. 5 samples were obtained. ? Minimal bleeding post EBBX that required 4 cc of topical epinephrine (1: 20,000 concentration). Then we achieved complete hemostasis. [place] Bleeding Scale Grade 2 Following completion of all diagnostic and therapeutic procedures, hemostasis was verified.? The scope was removed and procedure concluded. In summary, the following procedures were performed: [address]806 [place] (Endobronchial Brushing(s)), 57708 BAL, (Bronchoalveolar Lavage), 40243 TBBX, (Transbronchial biopsies, first lobe), 58824 pTBNA, (peripheral transbronchial needle aspiration), 63654 cEBUS 3 or more lesions, (Central curvelinear EBUS 3 or more lesions), 68122 pEBUS (peripheral/radial EBUS)? , 30559 [place], (Navigation bronchoscopy, [employer], Character Booster), 20250: CT guidance for needle placement, 30439 endobronchial biospy 60518 Theraputic aspiration of secretions. ? Yasir Donahue MD, FACP, FASN Interventional Pulmonary
[2025-03-24 02:55] LABS: Cyto Order Verification Order Verified
[2025-03-26 22:55] LABS: Legionella Specimen Source RUL BAL FOR MICRO
[2025-03-26 22:55] LABS: Legionella Specimen Source LUL BAL FOR MICRO
[2025-03-27 08:00] LABS: Lymphoma Profile (BBPL) See Report
[2025-03-27 17:43] LABS: Aspergillus AG,EIA NOT DETECTED; Aspergillus AG,EIA, Index <0.50
[2025-03-27 17:43] LABS: Aspergillus AG,EIA DETECTED; Aspergillus AG,EIA, Index 0.68
[2025-03-29 08:42] LABS: Lymphoma Profile (BBPL) See Report
[2025-04-26 12:58] LABS: Pneumocystis Jirovecii Carinii NOT DETECTED
== END 2025-03-23 14:30 | disposition home or self-care (01) ==
PROVIDERS: PCP Family Medicine; Visit Provider Internal Medicine
PROC: 0BJ08ZZ Inspection of Tracheobronchial Tree, Via Natural or Artificial Opening Endoscopic (ICD-10-PCS; CPT 31622; principal; 2025-03-23 09:40)
PROC: BB4BZZZ Ultrasonography of Pleura (ICD-10-PCS; 2025-03-23 09:40)
DX: R91.8 Other nonspecific abnormal finding of lung field (principal); R59.1 Generalized enlarged lymph nodes; J44.9 Chronic obstructive pulmonary disease, unspecified; I25.10 Atherosclerotic heart disease of native coronary artery without angina pectoris; I11.0 Hypertensive heart disease with heart failure; I50.9 Heart failure, unspecified; K21.9 Gastro-esophageal reflux disease without esophagitis; Z87.891 Personal history of nicotine dependence
CPT/HCPCS: 31623; 31624; 31625; 31627; 31628; 31629; 31645; 31653; 31654; 71045; 76000; 77012; 87015; 87070; 87075; 87081; 87102; 87116; 87176; 87186; 87205; 87206; 87278; 87281; 87305; 87801; 88112; 88173; 88184; 88185; 88305; J0169; J1100; J2405; J2704; J3010; J3490; J7030; J9999

== ENCOUNTER → 2025-03-29 16:16 | Outpatient (BNVA) | payer MEDICARE, SELFPAY | PROVIDERS: PCP Family Medicine; Visit Provider Internal Medicine | DX: R91.8 Other nonspecific abnormal finding of lung field (principal) | CPT/HCPCS: 36415; 80053; 85025 ==

== ENCOUNTER → 2025-04-11 15:29 | Outpatient (BNVA) | payer MEDICARE, SELFPAY | PROVIDERS: PCP Family Medicine; Visit Provider Student in an Organized Health Care Education/Training Program | DX: A31.9 Mycobacterial infection, unspecified (principal); R91.1 Solitary pulmonary nodule; B48.8 Other specified mycoses | CPT/HCPCS: 36415 ==

== ENCOUNTER 2025-04-17 14:33 | Outpatient (CLI) | payer MEDICARE, SELFPAY | END 2025-04-17 14:34 | disposition home or self-care (01) | LOC: LAB 14:35 | PROVIDERS: Student in an Organized Health Care Education/Training Program; PCP Family Medicine; Visit Provider Internal Medicine | DX: R91.8 Other nonspecific abnormal finding of lung field (principal); A31.9 Mycobacterial infection, unspecified; R91.1 Solitary pulmonary nodule; B48.8 Other specified mycoses | CPT/HCPCS: 36415; 80299; 86235 ==

== ENCOUNTER 2025-04-28 07:08 | Outpatient (CLI) | payer MEDICARE, SELFPAY | END 2025-04-28 07:09 | disposition home or self-care (01) | LOC: RAD 07:10 | PROVIDERS: PCP Family Medicine; Visit Provider Internal Medicine | DX: R06.02 Shortness of breath (principal) | CPT/HCPCS: 93306 ==

== ENCOUNTER → 2025-05-03 15:25 | Outpatient (BNVA) | payer MEDICARE, SELFPAY | PROVIDERS: PCP Family Medicine; Visit Provider Internal Medicine | DX: B44.1 Other pulmonary aspergillosis (principal); R91.8 Other nonspecific abnormal finding of lung field; A31.9 Mycobacterial infection, unspecified; Z87.891 Personal history of nicotine dependence | CPT/HCPCS: 99213 ==

== ENCOUNTER 2025-05-08 12:16 | Outpatient (CLI) | payer MEDICARE, SELFPAY ==
--- NOTE | 2025-05-08 12:30 | CTR_ITS ---
PROCEDURE INFORMATION: Exam: CT Chest Without Contrast; Diagnostic Exam date and time: 05/08/2025 12:42 PM Age: 80 years old Clinical indication: Condition or disease; Other: Follow up dematiaceous mold infection TECHNIQUE: Imaging protocol: Diagnostic computed tomography of the chest without contrast. Radiation optimization: All CT scans at this facility use at least one of these dose optimization techniques: automated exposure control; mA and/or kV adjustment per patient size (includes targeted exams where dose is matched to clinical indication); or iterative reconstruction. COMPARISON: 1. PT PET skull to thigh INIT [id number] 03/10/2025 3:[address] chest w con* [id number] 03/06/2025 11:15 AM RADIATION DOSE METRICS: Total DLP (mGy-cm): 292.71 FINDINGS: Lungs: Bilateral pulmonary nodules and lobulated regions of consolidation are present . A 3 cm oval consolidated focus posteriorly in the left upper lobe previously measured 2 cm. A lobulated 2.5 cm consolidated focus has developed centrally in the left lower lobe in the location of previous pulmonary nodules . New 3 cm region of consolidation posteriorly in the lingula. 2 cm region of consolidation has developed posteriorly in the right lower lobe . A region of pulmonary nodules and small consolidative foci posteriorly in the right upper lobe are unchanged. New 2 cm consolidative focus centrally in the right upper lobe. Few new pulmonary nodules measuring under 1 cm are present in both lower lobes. Pleural spaces: Interval development of mild left pleural effusion. Heart: Unremarkable. No cardiomegaly. No pericardial effusion. Coronary arteries: Coronary artery calcifications are present. Lymph nodes: No lymph node enlargement. Unchanged shanda calcifications in the ju and subcarinal region. Vasculature: Unremarkable. No aortic aneurysm. Liver: Numerous hepatic cysts are again noted. Bones/joints: Unchanged diffuse disc space fusion suggesting ankylosing spondylitis no acute osseous abnormality. Cages 2 minute right dysconjugate ready Soft tissues: Unremarkable. CT/CT chest wo con [id number] IMPRESSION: 1. Interval development of mild left pleural effusion. 2. Increasing number of small consolidative masses bilaterally. Slight increase in bilateral pulmonary nodules. The pattern suggests progressive fungal disease, although other inflammatory and neoplastic conditions could have this appearance.
== END 2025-05-08 12:17 | disposition home or self-care (01) ==
LOC: RAD 12:17
PROVIDERS: PCP Family Medicine; Visit Provider Student in an Organized Health Care Education/Training Program
DX: J44.9 Chronic obstructive pulmonary disease, unspecified (principal); A31.9 Mycobacterial infection, unspecified; R91.1 Solitary pulmonary nodule; B48.8 Other specified mycoses; R91.8 Other nonspecific abnormal finding of lung field; J90 Pleural effusion, not elsewhere classified; I25.10 Atherosclerotic heart disease of native coronary artery without angina pectoris; K76.89 Other specified diseases of liver
CPT/HCPCS: 71250

== ENCOUNTER → 2025-05-09 14:53 | Outpatient (BNVA) | payer MEDICARE, SELFPAY | PROVIDERS: PCP Family Medicine; Visit Provider Student in an Organized Health Care Education/Training Program | DX: B48.8 Other specified mycoses (principal); A31.9 Mycobacterial infection, unspecified | CPT/HCPCS: 36415; 80053; 80299; 99215 ==

== ENCOUNTER 2025-05-10 09:54 | Outpatient (CLI) | payer MEDICARE, SELFPAY ==
[2025-05-10 10:44] LABS: Hematocrit 40.0 % (37-53); Hemoglobin 12.90 g/dL (11.27-16.99); Mean Corpuscular HGB Conc 32.3 g/dL (30-55); Mean Corpuscular Hemoglobin 30.3 pg (27-33); Mean Corpuscular Volume 93.9 fl (82-101); Nucleated Red Blood Cells % 0 %; Platelet Count 298 10^3/cmm (157-399); Red Blood Count 4.26 10^6/uL (3.85-5.65); White Blood Count 7.44 10^3/uL (3.29-11.43)
[2025-05-10 11:04] LABS: Alanine Aminotransferase 12 U/L (0-41); Albumin Level 3.9 g/dL (3.5-5.2); Alkaline Phosphatase 104 U/L (40-130); Chloride 102 mmol/L (98-107); Potassium 4.4 mmol/L (3.5-5.1); Sodium 139 mmol/L (136-145)
[2025-05-10 11:45] LABS: Anion Gap 12.4 (5-19); Aspartate Amino Transferase 22 U/L (0-40); Blood Urea Nitrogen 13 mg/dL (8-23); Calcium 9.5 mg/dL (8.5-10.5); Carbon Dioxide 29 mmol/L (22-29); Globulin 3.6 g/dL (1.3-4.6); Glucose 93 mg/dL (65-115); Osmolality Calculated 288 mOsm/kg (285-295); Total Protein 7.5 g/dL (6.6-8.7)
== END 2025-05-10 09:55 | disposition home or self-care (01) ==
LOC: LAB 09:56
PROVIDERS: PCP Family Medicine; Visit Provider Student in an Organized Health Care Education/Training Program
DX: A31.9 Mycobacterial infection, unspecified (principal); R91.1 Solitary pulmonary nodule; B48.8 Other specified mycoses
CPT/HCPCS: 36415; 80053; 80299; 85025; 86235

== ENCOUNTER → 2025-06-08 13:13 | Outpatient (BNVA) | payer MEDICARE, SELFPAY | PROVIDERS: PCP Family Medicine; Visit Provider Internal Medicine | DX: J18.9 Pneumonia, unspecified organism (principal); R91.1 Solitary pulmonary nodule; J47.9 Bronchiectasis, uncomplicated; J90 Pleural effusion, not elsewhere classified; A31.9 Mycobacterial infection, unspecified; Z87.891 Personal history of nicotine dependence | CPT/HCPCS: 99214; Q3014 ==

== ENCOUNTER 2025-06-13 06:58 | Outpatient (CLI) | payer MEDICARE, SELFPAY ==
--- NOTE | 2025-06-13 07:00 | CT_ITS ---
WS: [id number] CT chest wo con [id number] HISTORY: f/up invasive fungal infection TECHNIQUE: Axial imaging performed through the thorax. Coronal and sagittal reformats are submitted. All CT scans at [facility] use at least one of these dose optimization techniques: automated exposure control; mA and/or kV adjustment per patient size (includes targeted exams where dose is matched to clinical indication); or iterative reconstruction. CONTRAST: None DLP: 364.31 mGy.cm COMPARISON: 05/08/2025, 03/06/2025, 11/30/2024 Lungs and central airway: Lungs are hyperinflated. Multi lobar areas of consolidation are reidentified. Areas of dense consolidation and scattered tree-in-bud airspace disease. Central and peripheral based areas of consolidation. There is mild groundglass associated with some of the consolidation suggesting this could be on aspergillosis. Consolidation in the LEFT upper lobe along the fissure has slightly increased since 11/30/2024. There is been a slight increase in the reticular nodular and tree-in-bud opacifications. No pneumothorax. Pleura: Normal. No pleural effusion. Heart and pericardium: Mild to moderate cardiomegaly. No pericardial effusion. Mediastinum and ju: Reidentified are mediastinal and hilar lymph nodes. These lymph nodes have not significantly progressed since 05/08/2025. Vessels: Mild atherosclerosis aorta. Normal size pulmonary artery. Chest wall and lower neck: No soft tissue masses. Upper abdomen: Small hiatal hernia. Patient has known hepatic cysts which are reidentified. These cysts were PET CT negative. No adrenal mass. Circular calcifications at the splenic hilum consistent with a small distal splenic artery aneurysm. Osseous structures: Moderate increase in thoracic kyphosis. CT/CT chest wo con [id number] IMPRESSION: 1. Mild progression of multilobar areas of consolidation and tree-in-bud airsp amy disease and nodules since 11/30/2024. By history patient has known aspergill osis. Differential would include organizing pneumonia and mycobacterial infecti on. 2. No adenopathy or interval change in the appearance of the lymph nodes. 3. No pneumothorax. 4. Mild to moderate cardiomegaly. 5. Hepatic cysts.
== END 2025-06-13 06:59 | disposition home or self-care (01) ==
LOC: RAD 06:59
PROVIDERS: PCP Family Medicine; Visit Provider Student in an Organized Health Care Education/Training Program
DX: B48.8 Other specified mycoses (principal); R91.8 Other nonspecific abnormal finding of lung field; K44.9 Diaphragmatic hernia without obstruction or gangrene; I70.0 Atherosclerosis of aorta; K76.89 Other specified diseases of liver; I72.8 Aneurysm of other specified arteries; D73.89 Other diseases of spleen; M40.204 Unspecified kyphosis, thoracic region; I51.7 Cardiomegaly
CPT/HCPCS: 71250

== ENCOUNTER 2025-06-20 14:48 | Outpatient (CLI) | payer MEDICARE, SELFPAY | END 2025-06-20 14:49 | disposition home or self-care (01) | LOC: LAB 14:49 | PROVIDERS: PCP Family Medicine; Visit Provider Student in an Organized Health Care Education/Training Program | DX: B44.1 Other pulmonary aspergillosis (principal); A31.9 Mycobacterial infection, unspecified | CPT/HCPCS: 87015; 87116; 87206; 87801 ==

== ENCOUNTER → 2025-07-06 15:52 | Outpatient (BNVA) | payer MEDICARE, SELFPAY | PROVIDERS: PCP Family Medicine; Visit Provider Internal Medicine | DX: J18.9 Pneumonia, unspecified organism (principal); R91.1 Solitary pulmonary nodule | CPT/HCPCS: 99214; Q3014 ==